=== PATIENT | female | born 1935 | race Caucasian/White ===

== ENCOUNTER 2016-07-22 12:11 | Inpatient (IN) | payer MEDICARE ==
[~2016-07-22] VITALS: Ht 162.6 cm; Wt 64.0 kg
[~2016-07-22 12:11] MED LIST: ALBUTEROL2.5 MG/NEB INH; ARIMIDEX1 MG PO; ASPIRIN CHILDRE81 M1 PO; BYSTOLIC10 MG PO; CALTRATE 600 +1 TAB PO; CENTRUM SILVER1 TAB PO; CHILDREN'S CHEW1 CT1 PO; FISH OIL CONC1000 MG PO; GARLIC500 MG PO; IRON TABLETS325 M1 PO; LEVOTHROID SO0.05 MG PO; LEVOTHYROXIN0.075 M1 PO; LISINOPRIL20 MG PO; MECLIZINE 25MG25 MG PO; METOPROLOL SUC100 M1 PO; METOPROLOL TAR100 MG PO; MULTI VITAMINS1 TAB PO; PANTOPRAZOLE40 M1 PO; PRAVASTATIN 40M40 MG PO; PROTONIX 40MG T40 MG PO; SIMVASTATIN10 MG PO; ZOFRAN ODT4 MG PO; ZYVOX600 MG PO
--- NOTE | 2016-07-22 13:20 | ACUTE CARE PROGRESS NOTE (QUA) ---
Progress Notes Subjective Date 07/22/16 Time 1317 Note See H&P. Admitted with MRSA pneumonia. Assessment/Plan Problem List 1. MRSA pneumonia Status: Acute Patient condition fair Plan: IV Gentamicin This inpt stay is expected to cross 2 MNs from start of care Yes at 1320
[2016-07-22 13:23] LABS: BUN 30 mg/dL (7-18)
[2016-07-22 13:27] VITALS: BP 130/77
[2016-07-22 13:35] LABS: GFR (ESTIMATED) 25 ML/MIN (59-)
[2016-07-22 13:40] LABS: LYMPH # 0.7 K/mm3 (0.7-4.5); LYMPH % 6.6 % (10-50.0)
[2016-07-22 13:53] LABS: HEMOGLOBIN 10.3 g/dL (12.2-16.2)
--- NOTE | 2016-07-22 14:01 | CONSULT NOTE ---
Pharmacokinetic Consult Date of consult: 07/22/16 Time of consult: 0898 Referring provider: DR. LEUNG Reason for consult: GENTAMICIN DOSING Allergies: Coded Allergies: levocetirizine (From Xyzal) (Severe, TONGUE SWELLS, DIZZINESS 03/24/16) linezolid (From Zyvox) (Severe, TONGUE SWELLS 03/24/16) Penicillins (Intermediate, I-HIVES 03/24/16) tetracycline (Intermediate, TONGUE SWELLS 03/24/16) Sulfa (Sulfonamide Antibiotics) (Mild, DIZZINESS 03/24/16) ciprofloxacin (From Cipro) (Mild, DIZZINESS 03/24/16) nitrofurantoin (From Macrobid) (Mild, DIZZINESS 03/24/16) Home Medications: Active Scripts ALBUTEROL (Albuterol 0.083% Neb) 2.5 MG INH DAILY #120 NEB Prov: 03/24/16 Reported Medications Levothyroxine Sodium (Levothyroxine) 0.05 MG NG DAILY #90 METOPROLOL SUCCINATE XL (Metoprolol Succinate) 100 MG PO DAILY PRAVASTATIN SODIUM (Pravastatin Sodium) 40 MG PO QHS Lisinopril 20 MG PO DAILY Aspirin 81 MG PO QHS Height (feet): 5 Height (inches): 4.00 Medical History: CAD? No Angina: No VA: No Hypertension? Yes Hyperlipidemia? Yes CHF? No COPD? No Asthma? No Anemia? No Hernia? No Thyroid Problems? No Hypothyroidism? No CVA? No Seizures? No Diabetes? No UTI? Yes Stones? No GB Disease: Yes Nephritic Syndrome? No Asplenia? No Hepatitis? No Sickle Cell Disease? No Arthritis? No Cataracts? Yes Glaucoma? No MRSA? No TB? No Cancer? Yes Site: BREAST More? Yes Additional hx: MRSA LEFT LUNG Labs: Laboratory Tests 07/22/16 1245: Sodium 133 L, Potassium 4.4, Chloride 101, Carbon Dioxide 21 L, BUN 30 H, Creatinine 1.9 H, Estimated GFR (MDRD) 25 L, Glucose 133 H, Calcium 8.3 L, WBC 10.1, RBC 3.68 L, Hgb 10.3 L, Hct 32.1 L, MCV 87.3, RDW 15.3, Plt Count 384, MPV 8.8, Gran % 86.2 H, Gran # 8.7 H, Lymphocytes % 6.6 L, Monocytes % 6.0, Eosinophils % 0.5, Basophils % 0.6, Lymphocytes # 0.7, Monocytes # 0.6, Eosinophils # 0.1, Basophils # 0.1, PUBS MCHC 32.0, MCH 28.0 Microbiology 07/22 1345 BLOOD: Anaerobic Blood Culture - RECD 07/22 1345 BLOOD: Aerobic Blood Culture - RECD 07/22 1245 BLOOD: Anaerobic Blood Culture - RECD 07/22 1245 BLOOD: Aerobic Blood Culture - RECD Problem List: 1. Pneumonia Plan: BASED ON PATIENT FACTORS, RECOMMEND GENTAMCIN 260 MG (4.7 MG/KG/DBW) IV Q48H. WILL OBTAIN LEVELS AT 4 AND 12 HOURS POST INFUSION. PHARMACY WILL FOLLOW DAILY AND ADJUST APPROPRIATE. at 1401
[2016-07-22 14:37] VITALS: BP 130/77
[2016-07-22 15:02] LABS: NEUTROPHILS 78 % (42-76)
[2016-07-22 16:19] VITALS: BP 136/78
[2016-07-22 19:47] VITALS: BP 159/77
[2016-07-22 20:40] VITALS: BP 159/77
[2016-07-23] VITALS (8 sets, daily range): BP systolic 138–168; BP diastolic 72–88
--- NOTE | 2016-07-23 10:20 | ACUTE CARE PROGRESS NOTE (QUA) ---
Progress Notes Subjective Date 07/23/16 Time 1016 Note She states that she feels better already. She is receiving gentamicin IV. Lab work is reviewed. Her TSH is low. Objective Findings Last VS-Temp:97.6 B/P:138/81 Pulse:78 Resp:16 SaO2:96 OXYGEN Last weight lbs:141 oz:3 K.042 Method:Bed Scales Exam General appearance: alert, no acute distress, she looks quite good. Eyes: anicteric, PERRLA ENT: mucous membranes moist Cardiovascular: regular rate & rhythm Respiratory: good air movement, diminished breath sounds (RIGHT base and with rales.) ABD: soft, no tenderness Extremities: no peripheral edema Skin: dry, intact, normal color Neuro: alert, no deficit, oriented, speech clear Reviewed: medications, vital signs, lab results, radiology report Assessment/Plan Problem List 1. MRSA pneumonia Status: Acute 2. Hypothyroidism Status: Chronic 3. HTN (hypertension) Status: Chronic Plan: continue current care, Dr. Huang will assume care tomorrow. This inpt stay is expected to cross 2 MNs from start of care Yes at 1019
--- NOTE | 2016-07-23 14:36 | CONSULT NOTE ---
Pharmacokinetic Consult Date of consult: 07/23/16 Time of consult: 1434 Referring provider: MADHU Reason for consult: GENT LEVELS Allergies: Coded Allergies: levocetirizine (From Xyzal) (Severe, TONGUE SWELLS, DIZZINESS 03/24/16) linezolid (From Zyvox) (Severe, TONGUE SWELLS 03/24/16) Penicillins (Intermediate, I-HIVES 03/24/16) tetracycline (Intermediate, TONGUE SWELLS 03/24/16) Sulfa (Sulfonamide Antibiotics) (Mild, DIZZINESS 03/24/16) ciprofloxacin (From Cipro) (Mild, DIZZINESS 03/24/16) nitrofurantoin (From Macrobid) (Mild, DIZZINESS 03/24/16) Home Medications: Reported Medications Levothyroxine Sodium (Levothyroxine 0.075MG) 0.075 MG PO DAILY METOPROLOL SUCCINATE XL (Metoprolol Succinate) 100 MG PO DAILY PRAVASTATIN SODIUM (Pravastatin Sodium) 40 MG PO QHS Lisinopril 20 MG PO DAILY Aspirin 81 MG PO QHS Height (feet): 5 Height (inches): 4.00 Medical History: CAD? No Angina: No RI: No Hypertension? Yes Hyperlipidemia? Yes CHF? No DVT? No PE? No COPD? No Asthma? No Anemia? No GERD? Yes Gastric ulcers? No GI Bleed? No Hernia? No Thyroid Problems? Yes Hypothyroidism? Yes CVA? No Seizures? No Diabetes? No Renal Insuffiency? No UTI? Yes Stones? No BPH? No GB Disease: No Nephritic Syndrome? No Asplenia? No Hepatitis? No Sickle Cell Disease? No Arthritis? No Migraines? No Cataracts? Yes Glaucoma? No MRSA? Yes HIV? No TB? No Anxiety? No Depression? No Cancer? Yes Site: BREAST RIGHT More? Yes Additional hx: MRSA LEFT LUNG Labs: Laboratory Tests 07/23/16 0405: Random Gentamicin 4.9 07/22/16 2000: Random Gentamicin 10.0 Plan: BASED ON CURRENT PT FACTORS AND LABS, RECOMMEND CONTINUING GENT 260 MG IV EVERY 48 HOURS. PHARMACY WILL FOLLOW DAILY AND ADJUST APPROPRIATE. at 1434
--- NOTE | 2016-07-23 15:06 | PHARMACY CLINIC NOTE ---
Patient Demographics Patient Demographics Admission date: 07/22/16 Allergies Coded Allergies: levocetirizine (From Xyzal) (Severe, TONGUE SWELLS, DIZZINESS 03/24/16) linezolid (From Zyvox) (Severe, TONGUE SWELLS 03/24/16) Penicillins (Intermediate, I-HIVES 03/24/16) tetracycline (Intermediate, TONGUE SWELLS 03/24/16) Sulfa (Sulfonamide Antibiotics) (Mild, DIZZINESS 03/24/16) ciprofloxacin (From Cipro) (Mild, DIZZINESS 03/24/16) nitrofurantoin (From Macrobid) (Mild, DIZZINESS 03/24/16) HEIGHT- FT: 5 IN: 4.00 K.042 VTE General Information Disclaimer The following section includes nursing documentation that has been pulled in for pharmacy review. Patient's VTE score: 1 Patient's VTE Risk: VERY LOW RISK Clinical trial participant? No VTE prophylaxis Type of prophylaxis/treatment: GARRICK at 1502
[2016-07-24] VITALS (8 sets, daily range): BP systolic 138–160; BP diastolic 76–87
--- NOTE | 2016-07-24 08:48 | ACUTE CARE PROGRESS NOTE (QUA) ---
Progress Notes Subjective Date 07/24/16 Time 0835 Note Thinks she is better; she is having a hard time sleeping; still has a dry cough; walks to the bathroom without problems. voiding QS; bowels have moved; she is eating without problems Objective Findings Vital Signs Date Time Temp Pulse Resp B/P Pulse O2 O2 Flow FiO2 Ox Delivery Rate 07/24 0830 98.7 85 16 159/80 93 ROOM AIR 07/24 0811 99.0 86 16 160/76 94 07/24 0439 99.0 86 16 160/76 94 ROOM AIR 07/24 0433 94 ROOM AIR 07/24 0024 98.6 78 16 157/87 96 ROOM AIR 07/23 2138 98.7 86 16 155/88 91 07/23 1948 98.7 86 16 155/88 91 ROOM AIR 07/23 1611 98.0 88 16 158/87 92 ROOM AIR 07/23 1152 2 07/23 1152 98.2 86 16 168/88 94 OXYGEN 2 07/23 1123 2 07/23 1019 2 Current Medications Metoprolol Succinate 100 MG QHS PO Sodium Chloride 1,000 ML .STK-MED ONE IV (DC) Levothyroxine Sodium 0.05 MG DAILY PO Levothyroxine Sodium 0.075 MG DAILY PO (DC) Lisinopril 20 MG DAILY PO Metoprolol Succinate 100 MG DAILY PO (DC) Prednisone 10 MG DAILY PO Aspirin 81 MG QHS PO Pravastatin Sodium 40 MG QHS PO (CKD) Gentamicin Sulfate 260 MG Q48H IV (CKD) Sodium Chloride 100 ML Sodium Chloride 1,000 ML .[id number] IV 07/23 1500 07/23 2300 07/24 0700 Intake Total 240 1167 Output Total Balance 240 1167 Intake, IV 1047 Intake, Oral 240 120 Last VS-Temp:98.7 B/P:159/80 Pulse:85 Resp:16 SaO2:93 ROOM AIR Last weight lbs:141 oz:3 K.042 Method:Bed Scales Exam General appearance: alert, active, no acute distress Cardiovascular: regular rate & rhythm Respiratory: few bibasilar crackles Assessment/Plan Problem List 1. MRSA pneumonia Status: Acute 2. Hypothyroidism Status: Chronic 3. HTN (hypertension) Status: Chronic Patient condition Improving Plan: saline lock ; continue with IV ABX, add xopenex [place] This inpt stay is expected to cross 2 MNs from start of care Yes (Gemma Lepe APRN) Assessment/Plan Problem List 1. MRSA pneumonia Status: Acute 2. Hypothyroidism Status: Chronic 3. HTN (hypertension) Status: Chronic 4. Anemia 5. Renal insufficiency Comments: Patient seen and agree with above note, plan on rechecking CXR today. Patient generally uses nebulized Gentamicin, will discuss availability with pharmacy. (Ben Huang MD) at 0848 at 0850 at 0908
[2016-07-24 09:15] LABS: HEMOGLOBIN 9.4 g/dL (12.2-16.2); LYMPH # 1.3 K/mm3 (0.7-4.5); LYMPH % 13.7 % (10-50.0)
--- NOTE | 2016-07-24 12:50 | RADIOLOGY REPORT PS360 ---
CHEST(2 VIEWS-NOT PORTABLE) ORDERING PHYSICIAN : Ben Huang MD PATIENT AGE: 81 years GENDER: Female INDICATION: Pneumonia vs bronchitis Progression Pneumonia TECHNIQUE: 8 PA and lateral chest COMPARISON: 07/21/[address] chest from 1 FINDINGS Progression of dense pneumonic infiltrate & consolidation, involving LLL since 07/21/2016 CXR. There are some small smooth the posterior left lower lobe. Only the posterior aspect of the diaphragm of is obscured. Likely Progressive volume loss and atelectasis here as well.. . Diffuse chronic interstitial changes and fibrotic changes bilaterally otherwise noted. Initially question early infiltrate right midlung but similar appearance seen on March and October 2015 CXR Cardiomegaly. Fani and superior mediastinal structures stable. Dilated aortic knob. Dextroscoliosis T-spine chest wall and T-spine with no acute findings IMPRESSION: Progression left lower lobe pneumonia Increased density of the pneumonic infiltrate & consolidation LLL lobe since 07/21/2016 Background advanced chronic fibrotic changes bilaterally
[2016-07-25] VITALS (8 sets, daily range): BP systolic 139–168; BP diastolic 75–95
[2016-07-25 06:26] LABS: HEMOGLOBIN 9.9 g/dL (12.2-16.2); LYMPH # 2.4 K/mm3 (0.7-4.5); LYMPH % 25.4 % (10-50.0)
--- NOTE | 2016-07-25 08:13 | ACUTE CARE PROGRESS NOTE (QUA) ---
Progress Notes Subjective Date 07/25/16 Time 0809 Note States that she feels much better this AM; Productive cough at times; Gentamycin inh has helped; She slept well and is eating better; She was able to take a shower and wash her hair yesterday; She did well with this activity Objective Findings Laboratory Tests 07/25/16 0600: Sodium 138, Potassium 4.1, Chloride 105, Carbon Dioxide 22, BUN 25 H, Creatinine 1.5 H, Estimated Creat Clear 30 L, Estimated GFR (MDRD) 33 L, Glucose 88, Calcium 8.3 L, WBC 9.4, RBC 3.60 L, Hgb 9.9 L, Hct 30.6 L, MCV 85.1, RDW 15.1, Plt Count 433 H, MPV 8.7, Gran % 66.2, Gran # 6.2, Lymphocytes % 25.4, Monocytes % 6.4, Eosinophils % 1.1, Basophils % 0.8, Lymphocytes # 2.4, Monocytes # 0.6, Eosinophils # 0.1, Basophils # 0.1, PUBS MCHC 32.4, MCH 27.6 07/24/16 0900: Sodium 138, Potassium 4.1, Chloride 106, Carbon Dioxide 20 L, BUN 27 H, Creatinine 1.6 H, Estimated Creat Clear 28 L, Estimated GFR (MDRD) 31 L, Glucose 135 H, Calcium 7.9 L, WBC 9.5, RBC 3.29 L, Hgb 9.4 L, Hct 27.6 L, MCV 83.7, RDW 15.1, Plt Count 381, MPV 8.8, Gran % 76.0, Gran # 7.2, Lymphocytes % 13.7, Monocytes % 7.5, Eosinophils % 2.2, Basophils % 0.5, Lymphocytes # 1.3, Monocytes # 0.7, Eosinophils # 0.2, Basophils # 0.1, PUBS MCHC 34.2, MCH 28.6 Vital Signs Date Time Temp Pulse Resp B/P Pulse O2 O2 Flow FiO2 Ox Delivery Rate 07/25 739 2 07/25 739 98.3 81 18 139/80 93 OXYGEN 2 07/25 0708 2 07/25 0600 88 ROOM AIR 07/25 0416 98.7 76 18 168/84 93 ROOM AIR 07/25 0013 98.7 85 18 145/75 92 ROOM AIR 07/24 2130 99.7 89 20 138/83 93 2 07/24 2003 99.7 89 20 138/83 93 ROOM AIR 07/24 1950 2 07/24 1950 92 ROOM AIR 07/24 1756 2 07/24 1756 88 ROOM AIR 07/24 1603 98.6 83 16 146/79 92 ROOM AIR 07/24 1153 98.2 84 16 153/86 92 ROOM AIR 07/24 1059 2 07/24 1059 2 07/24 1059 90 ROOM AIR 07/24 0830 98.7 85 16 159/80 93 ROOM AIR Current Medications Gentamicin Sulfate 0 .STK-MED ONE .ROUTE (DC) Gentamicin Sulfate 0 .STK-MED ONE .ROUTE (DC) Gentamicin Sulfate 80 MG TIDRT IV (CKD) Levalbuterol HCl 0.63 MG TIDRT INH Gentamicin Sulfate 80 MG Q8H IV (DC) Sodium Chloride 10 ML PRN PRN IV Metoprolol Succinate 100 MG QHS PO Levothyroxine Sodium 0.05 MG DAILY PO Lisinopril 20 MG DAILY PO Prednisone 10 MG DAILY PO Aspirin 81 MG QHS PO Pravastatin Sodium 40 MG QHS PO (CKD) Gentamicin Sulfate 260 MG Q48H IV (DCr) Sodium Chloride 100 ML Sodium Chloride 1,000 ML .[id number] IV (DC) 07/24 1500 07/24 2300 07/25 0700 Intake Total 360 Output Total Balance 360 Intake, Oral 360 Patient 141 lb Weight Last VS-Temp:98.3 B/P:139/80 Pulse:81 Resp:18 SaO2:93 OXYGEN Last weight lbs:141 oz:3 K.042 Method:Bed Scales Sputum GRAM STAIN Final 07/22/16-1456 GRAM STAIN: BUDDING YEAST 2+ GRAM POSITIVE BACILLI 2+ GRAM POS COCCI 2+ GRAM POS COCCI IN CHAINS 1+ <10 EPITHELIAL CELLS /LPF 10-25 WBC /LPF > SPUTUM CULTURE Final 07/25/16-0635 Organism 1 STAPHYLOCOCCUS AUREUS 1. STAPHYLOCOCCUS AUREUS RX AB M.I.C ROUTE COST I ------ -- --------- ----- ------ TRIMETH/SULFAMETH (BACTRIM) S <=10 CLINDAMYCIN R 4 ERYTHROMYCIN R >=8 GENTAMICIN S <=0.5 LEVOFLOXACIN R 4 OXACILLIN R >=4 BENZYLPENICILLIN R >=0.5 RIFAMPIN S <=0.5 TETRACYCLINE S <=1 VANCOMYCIN S 1 NOTIFIED DEJUAN THIS IS METHICILLIN RESISTANT STAPH AUREUS CALL MRSA RESULTS TO CAREGIVER Exam General appearance: alert, active, no acute distress, well-developed, well- nourished Cardiovascular: regular rate & rhythm Respiratory: bibasilar crackles ABD: non-distended, soft, no tenderness Extremities: no peripheral edema, no calf tenderness Neuro: alert, oriented Assessment/Plan Problem List 1. MRSA pneumonia Status: Acute 2. Hypothyroidism Status: Chronic 3. HTN (hypertension) Status: Chronic 4. Anemia 5. Renal insufficiency 6. Yeast infection Patient condition Improving Plan: continue with inhaled Gentamycin and add diflucan for + yeast in sputum This inpt stay is expected to cross 2 MNs from start of care Yes (Gemma Lepe APRN) Assessment/Plan Problem List 1. MRSA pneumonia Status: Acute 2. Hypothyroidism Status: Chronic 3. HTN (hypertension) Status: Chronic 4. Anemia 5. Renal insufficiency 6. Yeast infection Comments: Patient seen and agree with above note. (Ben Huang MD) Antibiotic Stewardship (2) Current Culture Results Microbiology 07/22 1345 BLOOD: Anaerobic Blood Culture - RECD 07/22 1345 BLOOD: Aerobic Blood Culture - RECD 07/22 1245 SPUTUM: Sputum Culture - COMP STAPHYLOCOCCUS AUREUS 07/22 1245 SPUTUM: Gram Stain - COMP Infxn that will respond? Yes Right drug,dose,and route? Yes More targeted antbx? No How long atbx needed? 10 (Gemma Lepe APRN) at 0826 at 0828
[2016-07-26 03:32] VITALS: BP 160/89
--- NOTE | 2016-07-26 08:12 | ACUTE CARE PROGRESS NOTE (QUA) ---
Progress Notes Subjective Date 07/26/16 Time 0808 Note She states that she feels so much better; productive cough of green sputum; breathing is better; denies CP; eating better; ambulated in the hallway yesterday; voiding QS Objective Findings Vital Signs Date Time Temp Pulse Resp B/P Pulse O2 O2 Flow FiO2 Ox Delivery Rate 07/26 0559 90 ROOM AIR 07/26 0344 91 ROOM AIR 07/26 0332 97.9 76 18 160/89 93 ROOM AIR 07/25 2345 98.1 90 18 160/95 93 ROOM AIR 07/25 2119 98.3 95 18 154/92 93 07/25 2025 2 07/25 1922 98.3 95 18 154/92 93 ROOM AIR 07/25 1611 98.3 94 18 141/77 92 ROOM AIR 07/25 1143 98.2 81 18 159/90 90 OXYGEN 2 07/25 0817 98.3 81 18 139/80 93 Current Medications Gentamicin Sulfate 80 MG TIDRT IH Fluconazole 200 MG DAILY PO (CKD) Gentamicin Sulfate 80 MG TIDRT IV (DC) Levalbuterol HCl 0.63 MG TIDRT INH Sodium Chloride 10 ML PRN PRN IV Metoprolol Succinate 100 MG QHS PO Levothyroxine Sodium 0.05 MG DAILY PO Lisinopril 20 MG DAILY PO Prednisone 10 MG DAILY PO Aspirin 81 MG QHS PO Pravastatin Sodium 40 MG QHS PO (CKD) 07/25 1500 07/25 2300 07/26 0700 Intake Total 540 250 Output Total Balance 540 250 Intake, IV 10 Intake, Oral 540 240 Last VS-Temp:97.9 B/P:160/89 Pulse:76 Resp:18 SaO2:90 ROOM AIR Last weight lbs:141 oz:3 K.042 Method:Bed Scales Exam General appearance: alert, active, no acute distress, sitting on bedside eating breakfast Cardiovascular: regular rate & rhythm Respiratory: better air movement; loose crackles > on the left Extremities: no peripheral edema Neuro: alert, oriented Assessment/Plan Problem List 1. MRSA pneumonia Status: Acute 2. Hypothyroidism Status: Chronic 3. HTN (hypertension) Status: Chronic 4. Anemia 5. Renal insufficiency 6. Yeast infection Patient condition Improved Plan: continue current care This inpt stay is expected to cross 2 MNs from start of care Yes (Gemma Lepe APRN) Assessment/Plan Problem List 1. MRSA pneumonia Status: Acute 2. Hypothyroidism Status: Chronic 3. HTN (hypertension) Status: Chronic 4. Anemia 5. Renal insufficiency 6. Yeast infection Comments: Patient seen and agree with above note. (Ben Huang MD) Antibiotic Stewardship (2) Infxn that will respond? Yes Right drug,dose,and route? Yes More targeted antbx? No (Gemma Lepe APRN) at 0812
[2016-07-26 08:34] VITALS: BP 131/75
[2016-07-26] MEDS ORDERED: GENTAMICIN80 MG/2 ML IH (08:49)
[2016-07-26] MEDS ORDERED: DIFLUCAN 200MG200 MG PO (08:51)
[2016-07-26] MEDS ORDERED: PREDNISONE 10MG10 MG PO (08:53)
[2016-07-26 11:34] VITALS: BP 131/75
--- NOTE | 2016-08-01 15:35 | DISCHARGE SUMMARY STANDARD ---
Discharge Summary ([facility]) Date of admission: 07/22/16 Date of discharge: 07/26/16 Problem List: 1. MRSA pneumonia 2. Hypothyroidism 3. HTN (hypertension) 4. Anemia 5. Renal insufficiency 6. Yeast infection History of present illness: Ms Lomas is an 81 year old female with a history of MRSA pneumonia who presented to the office of [facility] for a 1 day follow-up with a cough. She had previously been seen in the office with the same and had seen no improvement. She reported SOB with worsening the AM of the office visit. After assessment she was admitted to [facility] for further treatment of LLL pneumonia with MRSA. Exam on admission: Objective Findings Last VS-Temp:97.6 B/P:138/81 Pulse:78 Resp:16 SaO2:96 OXYGEN Last weight lbs:141 oz:3 K.042 Method:Bed Scales Exam General appearance: alert, no acute distress, she looks quite good. Eyes: anicteric, PERRLA ENT: mucous membranes moist Cardiovascular: regular rate & rhythm Respiratory: good air movement, diminished breath sounds (RIGHT base and with rales.) ABD: soft, no tenderness Extremities: no peripheral edema Skin: dry, intact, normal color Neuro: alert, no deficit, oriented, speech clear Hospital Course: patient was started on IV Gentamycin, steriods, and xopenex. She felt better daily. Gentamycin ws changed from IV to inhaled. She began to cough up sputum. Sputum culture did reveal MRSA. She began to eat better. She was able to take a shower and was ambulating in the room and hallway. On 07/26/16 she continued with a productive cough and was breathing better. On this date she was discharged to home. Laboratory data this visit: 07/25/16 0600: Sodium 138, Potassium 4.1, Chloride 105, Carbon Dioxide 22, BUN 25 H, Creatinine 1.5 H, Estimated Creat Clear 30 L, Estimated GFR (MDRD) 33 L, Glucose 88, Calcium 8.3 L, WBC 9.4, RBC 3.60 L, Hgb 9.9 L, Hct 30.6 L, MCV 85.1, RDW 15.1, Plt Count 433 H, MPV 8.7, Gran % 66.2, Gran # 6.2, Lymphocytes % 25.4, Monocytes % 6.4, Eosinophils % 1.1, Basophils % 0.8, Lymphocytes # 2.4, Monocytes # 0.6, Eosinophils # 0.1, Basophils # 0.1, PUBS MCHC 32.4, MCH 27.6 07/24/16 0900: Sodium 138, Potassium 4.1, Chloride 106, Carbon Dioxide 20 L, BUN 27 H, Creatinine 1.6 H, Estimated Creat Clear 28 L, Estimated GFR (MDRD) 31 L, Glucose 135 H, Calcium 7.9 L, WBC 9.5, RBC 3.29 L, Hgb 9.4 L, Hct 27.6 L, MCV 83.7, RDW 15.1, Plt Count 381, MPV 8.8, Gran % 76.0, Gran # 7.2, Lymphocytes % 13.7, Monocytes % 7.5, Eosinophils % 2.2, Basophils % 0.5, Lymphocytes > SPUTUM CULTURE Final 07/25/16-0635 Organism 1 STAPHYLOCOCCUS AUREUS 1. STAPHYLOCOCCUS AUREUS RX AB M.I.C ROUTE COST I ------ -- --------- ----- ------ TRIMETH/SULFAMETH (BACTRIM) S <=10 CLINDAMYCIN R 4 ERYTHROMYCIN R >=8 GENTAMICIN S <=0.5 LEVOFLOXACIN R 4 OXACILLIN R >=4 BENZYLPENICILLIN R >=0.5 RIFAMPIN S <=0.5 TETRACYCLINE S <=1 VANCOMYCIN # 1.3, Monocytes # 0.7, Eosinophils # 0.2, Basophils # 0.1 , PUBS MCHC 34.2, MCH 28.6 Imaging: CXR 07/21/16 IMPRESSION: 1. Left lower lobe pneumonia superimposed upon chronic fibrotic changes CXR 07/24/16 IMPRESSION: Progression left lower lobe pneumonia Increased density of the pneumonic infiltrate & consolidation LLL lobe since 07/21/2016 Background advanced chronic fibrotic changes bilaterally Discharge medications: Continue taking these medications: Lisinopril (Lisinopril) 20 MG TABLET 20 MILLIGRAM ORAL DAILY Aspirin (Aspirin) 81 MG TAB.CHEW 81 MILLIGRAM ORAL AT BEDTIME NIGHTLY PRAVASTATIN SODIUM (Pravastatin Sodium) 40 MG TABLET 40 MILLIGRAM ORAL AT BEDTIME NIGHTLY METOPROLOL SUCCINATE XL (Metoprolol Succinate) 100 MG TAB.ER.24H 100 MILLIGRAM ORAL DAILY Levothyroxine Sodium (Levothyroxine 0.075MG) 75 MCG TABLET 0.075 MILLIGRAM ORAL DAILY Start taking the following new medications: Gentamicin Sulfate (Gentamicin 80MG/2ML Inj) 40 MG/ML VIAL 80 MILLIGRAM INHALATION THREE TIMES A DAY 01/03/2000 Days = 7 No Refills Fluconazole (Diflucan 200MG) 200 MG TABLET 200 MILLIGRAM ORAL DAILY Days = 7 No Refills Prednisone (Prednisone 10MG) 10 MG TABLET 10 MILLIGRAM ORAL DAILY Qty = 10 Refills = 1 Instructions: 10 MG pO DAILY X 3 DAYS; THEN 5 MG PO DAILY X 7 DAYS Disposition: Discharged to home in stable and satisfactory condition. Meds as per reconciliation sheet; Gentamycin prepared by pharmacy for inhalation via neb bid. Diet and activity were to be continued during hospitalization. FU with Dr. Huang in 5 days at 2255
[2016-08-12] MEDS ORDERED: PROTONIX 40MG T40 MG PO (16:39)
[2016-08-16] MEDS ORDERED: FLAGYL500 M1 PO (09:34)
== END 2016-07-26 11:30 | disposition home or self-care (01) | DRG 179 ==
LOC: 2ND 12:11
PROVIDERS: Family Medicine
DX: J15.212 Pneumonia due to Methicillin resistant Staphylococcus aureus (principal); D64.9 Anemia, unspecified; E03.9 Hypothyroidism, unspecified; I10 Essential (primary) hypertension; B37.9 Candidiasis, unspecified; N28.9 Disorder of kidney and ureter, unspecified

== ENCOUNTER → 2016-07-31 | Outpatient (CLI) | payer MEDICARE ==
[~2016-07-31] MED LIST changes: +ALLEGRA ALLERG180 MG PO; +CENTRUM SILVER1 EACH PO; +CITRACAL + BON1 EACH PO; +DIFLUCAN 200MG200 MG PO; +FERROUS SULFAT325 M1 PO; +FLAGYL500 M1 PO; +GENTAMICIN80 MG/2 ML IH; +PREDNISONE 10MG10 MG PO; +PROBIOTIC FORM1 EACH PO
--- NOTE | 2016-07-31 11:47 | RADIOLOGY REPORT PS360 ---
CHEST(2 VIEWS-NOT PORTABLE) HISTORY: PNEUMONIA COMPARISON: 07/24/2016 FINDINGS: The cardiomediastinal silhouette and pulmonary vascularity are within normal limits. Left lower lobe pneumonia has shown some improvement compared to the previous exam. There does remain some increased density in the left lung base however. Chronic interstitial changes are noted with evidence of old granulomatous disease minimal atelectatic or fibrotic changes are present in the right midlung. Moderate thoracic scoliosis convex right. Small hiatal hernia IMPRESSION: Persistent but improving left lower lobe pneumonia with chronic changes.
== END ==
LOC: RAD 11:01
DX: J15.212 Pneumonia due to Methicillin resistant Staphylococcus aureus (principal)

== ENCOUNTER 2016-09-25 14:46 | Inpatient (IN) | payer MEDICARE ==
[~2016-09-25] VITALS: Ht 160 cm; Wt 64.1 kg
[~2016-09-25 14:46] MED LIST changes: -ALLEGRA ALLERG180 MG PO; -CENTRUM SILVER1 EACH PO; -CITRACAL + BON1 EACH PO; -FERROUS SULFAT325 M1 PO; -PROBIOTIC FORM1 EACH PO
[2016-09-25 15:09] VITALS: BP 102/70
[2016-09-25 15:30] LABS: LYMPH # 1.3 K/mm3 (0.7-4.5); LYMPH % 16.9 % (10-50.0)
--- NOTE | 2016-09-25 16:27 | RADIOLOGY REPORT PS360 ---
CT ABD PELVIS W/O CONTRAST CLINICAL INDICATION: Abdominal pain with diarrhea, history of intussusception ABDOMINAL PAIN ORDERING PHYSICIAN: Miles Edgar MD PATIENT AGE: 81 years COMPARISON: 08/13/2016 TECHNIQUE: Axial images obtained with sagittal and coronal reformats. PROCEDURE: Oral Contrast: None IV Contrast: None . FINDINGS: There is moderate bronchial thickening in the lung bases which has progressed since the previous exam. There is some mild bronchiectasis in the lingula and left lower lobe with peripheral consolidation/volume loss in the lung bases posteriorly. Small left pleural effusion. The liver has an unremarkable appearance. There has been a prior cholecystectomy. A 16 mm probably benign isodensity involves the spleen similar to an older exam of 09/22/2011. The pancreas and adrenal glands are unremarkable. No renal stone or obstructing ureteral stone evident. Possible cyst lateral aspect of the left kidney. Ileocolic intussusception is once again noted. This is somewhat more prominent than when compared to the previous exam. Previously however there was moderate bowel wall thickening of the terminal ileum which is not readily apparent on today's exam. There does appear to be thickening of the tip of the cecum which is within the central aspect of the intussusceptum. There is colonic diverticulosis but no evidence of diverticulitis. No intestinal obstruction or free air. There is minimal subcortical cystic change of the SI joints nonspecific. IMPRESSION: 1. Ileocolic intussusception as described above. No evidence of bowel obstruction. 2. No change splenic lesion. 3. There is thickening of the tip of the cecum which is involved within the intussusception. This could be inflammatory or neoplastic. Follow-up suggested.
--- NOTE | 2016-09-25 17:35 | Emergency Room Report ---
History of Present Illness Time Seen by 1531 Presenting Problem in Triage Pt arrived:Wheelchair Presenting Problem:ABD PAIN X3 DAYS WITH DIARRHEA PT WAS SEEN BY DR CUEVA ON SUNDAY DX WITH CHOLOLITIS , WAS PUT ON FLAGYL WITH NO IMPROVMENTS Onset of symptoms date/time:09/2210/06/699 or onset unknown for: Treatment Prior to Arrival: PT PLACED ON FLAGYL ON SUNDAY [employer] Provided by: PHYSICIAN Sepsis Risk Assessment: Temp: 97.9 B/P: 125/72 MAP: 80 Pulse: 82 Resp: 20 Recent fever? N Clinical Suspician of Infection? N Mental Status: 1 - Regular (Normal Baseline) Sepsis Risk:Low Sepsis Risk Have you (or family members/close friends) recently traveled outside the [place]? N If Yes, where/when: Have you had exposure to infectious disease within the past month? N TB? Other? Specify: She complains of LEFT lower quadrant crampy pain moderate to severe at times she states it doesn't radiate anywhere denies any fevers or chills has had diarrhea denies any vomiting no complaint of chest pain or headache, sore family doctor on Sunday states she was diagnosed with colitis and was put on Flagyl Comment CT ABD PELVIS W/O CONTRAST CLINICAL INDICATION: Abdominal pain with diarrhea, history of intussusception ABDOMINAL PAIN ORDERING PHYSICIAN: Miles Edgar MD PATIENT AGE: 81 years COMPARISON: 08/13/2016 TECHNIQUE: Axial images obtained with sagittal and coronal reformats. PROCEDURE: Oral Contrast: None IV Contrast: None . FINDINGS: There is moderate bronchial thickening in the lung bases which has progressed since the previous exam. There is some mild bronchiectasis in the lingula and left lower lobe with peripheral consolidation/volume loss in the lung bases posteriorly. Small left pleural effusion. The liver has an unremarkable appearance. There has been a prior cholecystectomy. A 16 mm probably benign isodensity involves the spleen similar to an older exam of 09/22/2011. The pancreas and adrenal glands are unremarkable. No renal stone or obstructing ureteral stone evident. Possible cyst lateral aspect of the left kidney. Ileocolic intussusception is once again noted. This is somewhat more prominent than when compared to the previous exam. Previously however there was moderate bowel wall thickening of the terminal ileum which is not readily apparent on today's exam. There does appear to be thickening of the tip of the cecum which is within the central aspect of the intussusceptum. There is colonic diverticulosis but no evidence of diverticulitis. No intestinal obstruction or free air. There is minimal subcortical cystic change of the SI joints nonspecific. IMPRESSION: 1. Ileocolic intussusception as described above. No evidence of bowel obstruction. 2. No change splenic lesion. 3. There is thickening of the tip of the cecum which is involved within the intussusception. This could be inflammatory or neoplastic. Follow-up suggested. 09/25/16 1627 BONAL / PS AT 1611 AT 1622 55pm I have discussed with Dr. Birch and the CAT scan he will follow as a consult I discussed with Dr. Ibrahim the diarrhea LEFT lower quadrant pain that elevated creatinine E intussusception and he accepts patient in admission ALLERGIES Coded Allergies: levocetirizine (From Xyzal) (Severe, TONGUE SWELLS, DIZZINESS 03/24/16) linezolid (From Zyvox) (Severe, TONGUE SWELLS 03/24/16) Penicillins (Intermediate, I-HIVES 03/24/16) tetracycline (Intermediate, TONGUE SWELLS 03/24/16) Sulfa (Sulfonamide Antibiotics) (Mild, DIZZINESS 03/24/16) ciprofloxacin (From Cipro) (Mild, DIZZINESS 03/24/16) nitrofurantoin (From Macrobid) (Mild, DIZZINESS 03/24/16) Home Medications Active Scripts Metronidazole (Flagyl) 500 MG PO Q8 #20 TAB Prov: 08/16/16 Reported Medications Levothyroxine Sodium (Levothyroxine 0.075MG) 0.075 MG PO DAILY METOPROLOL SUCCINATE XL (Metoprolol Succinate) 100 MG PO DAILY PRAVASTATIN SODIUM (Pravastatin Sodium) 40 MG PO QHS Pantoprazole Sodium (Protonix 40MG TAB) 40 MG PO QHS Lisinopril 20 MG PO DAILY Aspirin 81 MG PO QHS History Medical History General CAD? No Angina: No IN: No Hypertension? Yes Hyperlipidemia? Yes CHF? No DVT? No PE? No COPD? No Asthma? No Anemia? No GERD? Yes Gastric ulcers? No GI Bleed? No Hernia? No Thyroid Problems? Yes Hypothyroidism? Yes CVA? No Seizures? No Diabetes? No Renal Insuffiency? No End Stage Renal Disease? No UTI? Yes Stones? No BPH? No GB Disease: No Nephritic Syndrome? No Asplenia? No Hepatitis? No Sickle Cell Disease? No Arthritis? No Migraines? No Cataracts? Yes Glaucoma? No MRSA? Yes HIV? No TB? No Anxiety? No Depression? No Cancer? Yes Site: BREAST RIGHT More? Yes Additional hx: MRSA LEFT LUNG Immunization Hx DT/Tetanus 5-10 Years Ago Flu 2016-17FSN Pneumonia Received In Past Surgical Hx Previous Surgery?Y Breast bx R LUMPECTOMY [id number] 2007 BILAT BREASTS- FIBROCYSTIC TUMORS REMOVED X10 LT CATARACT CHOLECYSTECTOMY RIGHT CATARACT Family History Family Hx Diabetes No CAD No Hypertension Yes Hyperlipidemia Yes Cancer No TB No Social History Smoking Hx Smoker: Never Smoker Tobacco: No Packs/day N/A Alcohol Alcohol: No Review of Systems All Other Systems Reviewed and Negative Physical Exam Vital Signs Vital Signs Date Time Temp Pulse Resp B/P Pulse O2 O2 Flow FiO2 Ox Delivery Rate 09/25 1641 97.9 82 20 125/72 92 09/25 1509 97.9 83 20 102/70 94 09/25 1455 97.9 83 20 102/70 94 General Appearance: Nontoxic Head: Normocephalic, without obvious abnormality, atraumatic. Eyes: conjunctiva/corneas clear ENT: Mucous membranes moist. Neck: No jugular venous distention. Cardiac: regular rate and rhythm Lungs: Clear to auscultation bilaterally Abdomen: LEFT lower quadrant tenderness, Nondistended, positive bowel sounds, no rebound : No CVA tenderness Extremities: no edema Musculoskeletal: No chest wall tenderness Skin: No rashes or lesions to exposed skin. Neurologic: Alert. No gross focal deficits Psychiatric: Normal affect (Tala MELARA, Miles) General Appearance normal appearance Respiratory Status No: respiratory distress. Cardiovascular no JVD Neurologic alert Medical Decision Making LABS/Meds/Orders Pt receiving controlled substance in ED? No Comment 542pm call out to surgery Results/Orders Laboratory Tests 09/25/16 1527: Sodium Cancelled, Potassium Cancelled, Chloride Cancelled, Carbon Dioxide Cancelled, BUN Cancelled, Creatinine Cancelled, Estimated Creat Clear Cancelled, Estimated GFR (MDRD) Cancelled, Glucose Cancelled, Calcium Cancelled, Total Bilirubin Cancelled, AST Cancelled, ALT Cancelled, Alkaline Phosphatase Cancelled, Total Protein Cancelled, Albumin Cancelled, Globulin Cancelled, Albumin/Globulin Ratio Cancelled, Urine Color Cancelled, Urine Appearance Cancelled, Urine pH Cancelled, Ur Specific [place] Cancelled 09/25/16 1522: Sodium 134 L, Potassium 4.1, Chloride 100, Carbon Dioxide 20 L, BUN 43 H, Creatinine 3.4 H, Estimated Creat Clear 12 L, Estimated GFR (MDRD) 13 *L, Glucose 101, Calcium 8.5, Total Bilirubin 0.3, AST 37, ALT 21, Alkaline Phosphatase 43 L, Total Protein 8.3 H, Albumin 2.9 L, Globulin 5.4 H, Albumin/Globulin Ratio 0.5 L, Amylase 42, Lipase 194, WBC 8.0, RBC 3.84 L, Hgb 11.0 L, Hct 34.4 L, MCV 89.4, RDW 15.9, Plt Count 269, MPV 6.1 L, Gran % 79.1 , Gran # 6.3, Lymphocytes % 16.9, Monocytes % 3.4, Eosinophils % 0.2, Basophils % 0.3, Lymphocytes # 1.3, Monocytes # 0.3, Eosinophils # 0.0, Basophils # 0.0, PUBS MCHC 31.3 L, MCH 28.0 09/25/16 0330: WBC Cancelled, RBC Cancelled, Hgb Cancelled, Hct Cancelled, MCV Cancelled, RDW Cancelled, Plt Count Cancelled, Gran % Cancelled, Gran # Cancelled, Lymphocytes % Cancelled, Eosinophils % Cancelled, Basophils % Cancelled, Lymphocytes # Cancelled, Eosinophils # Cancelled, Basophils # Cancelled, PUBS MCHC Cancelled, MCH Cancelled Current Medication Orders Sig/Quentin Start time Last Medication Dose Route Stop Time Status Admin Sodium Chloride 1,000 ML .STK-MED ONE 09/25 1550 DC IV Sodium Chloride 10 ML PRN PRN 09/25 1530 AC IV 09/26 1523 Sodium Chloride 10 ML PRN PRN 09/25 1530 AC IV 09/26 1523 Sodium Chloride 1,000 ML .Q1H1M 09/25 1530 DC 09/25 IV 09/25 1630 1551 Sodium Chloride 10 ML PRN PRN 09/25 1530 AC IV 09/26 1523 Orders Procedure Date/time Status DIET-NOTHING BY MOUTH 09/25 D Active Decision to admit 09/25 1752 Active CULTURE, STOOL 09/25 1748 Active OVA AND PARASITE EXAM 09/25 1748 Active STOOL FOR WBC'S 09/25 1748 Active STOOL OCCULT BLOOD 09/25 1748 Active CLOSTRIDIUM DIFFICLE TOXIN A,B 09/[address] ABD/PELVIS REQ 09/25 1527 Complete IV SALINE LOCK 09/25 1527 Active IV SALINE LOCK 09/25 1523 Active URINALYSIS/COMPLETE 09/25 1523 Active LIPASE 09/25 1523 Complete COMPLETE METABOLIC PANEL 09/25 1523 Complete CBC WITH AUTO DIFF 09/25 1523 Complete AMYLASE 09/25 1523 Complete Departure Departure Time of Disposition 1755 Disposition Still a Patient Clinical Impression Primary Impression: JALYN (acute kidney injury) Secondary Impressions: Abdominal pain Qualifiers: Abdominal location: left lower quadrant Qualified Code: R10.32 - Left lower quadrant pain Colonic intussusception Diarrhea Qualifiers: Diarrhea type: unspecified type Qualified Code: R19.7 - Diarrhea, unspecified Condition STABLE ED Critical Care Critical Care No at 1756
[2016-09-25 19:03] VITALS: BP 149/83
--- NOTE | 2016-09-25 19:15 | CONSULT NOTE ---
Standard Demographics Patient Demo Date of Consultation: 09/25/16 Referring Provider: Ben Huang MD Reason for Consultation: possible intussusception PRIMARY DIAGNOSIS: ACUTE KIDNEY INJURY, INTUSSESCEPTION Allergies: Coded Allergies: levocetirizine (From Xyzal) (Severe, TONGUE SWELLS, DIZZINESS 03/24/16) linezolid (From Zyvox) (Severe, TONGUE SWELLS 03/24/16) Penicillins (Intermediate, I-HIVES 03/24/16) tetracycline (Intermediate, TONGUE SWELLS 03/24/16) Sulfa (Sulfonamide Antibiotics) (Mild, DIZZINESS 03/24/16) ciprofloxacin (From Cipro) (Mild, DIZZINESS 03/24/16) nitrofurantoin (From Macrobid) (Mild, DIZZINESS 03/24/16) History of Present Illness Chief Complaint: Abdominal pain and diarrhea History of Present Illness: Patient is an 81-year-old white female. 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 She had been hospitalized in late July with change in bowel habits. In that time she had undergone noncontrast CT scan which revealed findings suggestive of ileocolic intussusception. Her symptoms actually completely resolved during that hospitalization and she underwent follow-up CT scan with oral contrast later during that admission which revealed findings more suggestive of right-sided colitis. She states she had been doing well at home as an outpatient without any such symptoms until last Sunday. She states that she had eaten some spicy food and then developed significant diarrhea with watery stools for several days. She saw her primary physician and was started on metronidazole on 09/22/16. She had ongoing symptoms of LEFT lower quadrant pain throughout the last several days with ongoing diarrhea and therefore presented to the emergency department this afternoon. CT scan was performed without contrast which was read as ileocolic intussusception. She was admitted for inpatient management. Patient has not had any nausea or vomiting or signs of bowel obstruction. Of note, patient underwent previous colonoscopy at least 10 [place] ago out of state. Past Medical History Reports: hypertension. Surgical History Previous Surgery?Y Breast bx R LUMPECTOMY [id number] 2008 BILAT BREASTS- FIBROCYSTIC TUMORS REMOVED X10 LT CATARACT CHOLECYSTECTOMY RIGHT CATARACT Allergies Coded Allergies: levocetirizine (From Xyzal) (Severe, TONGUE SWELLS, DIZZINESS 03/24/16) linezolid (From Zyvox) (Severe, TONGUE SWELLS 03/24/16) Penicillins (Intermediate, I-HIVES 03/24/16) tetracycline (Intermediate, TONGUE SWELLS 03/24/16) Sulfa (Sulfonamide Antibiotics) (Mild, DIZZINESS 03/24/16) ciprofloxacin (From Cipro) (Mild, DIZZINESS 03/24/16) nitrofurantoin (From Macrobid) (Mild, DIZZINESS 03/24/16) Medications: Active Scripts Metronidazole (Flagyl) 500 MG PO Q8 #20 TAB Prov: 08/16/16 Reported Medications Levothyroxine Sodium (Levothyroxine 0.075MG) 0.075 MG PO DAILY METOPROLOL SUCCINATE XL (Metoprolol Succinate) 100 MG PO DAILY PRAVASTATIN SODIUM (Pravastatin Sodium) 40 MG PO QHS Pantoprazole Sodium (Protonix 40MG TAB) 40 MG PO QHS Lisinopril 20 MG PO DAILY Aspirin 81 MG PO QHS Additional medical history: MRSA pneumonia followed by infectious disease on aerosolize gentamicin Smoking Hx Tobacco: No Smoker: Never Smoker Type: N/A Packs/day: N/A Are you/the child exposed to second-hand smoke: No Alcohol Alcohol: No Hx of Drug Use Drug Use? No Review of Systems Constitutional No: chills. Skin No: ecchymosis. Immune/allergy No: anaphalaxis. Eyes No: vision loss. ENT No: hearing loss. Respiratory Positive for: non-productive. Cardiovascular No: chest pain. GI Positive for: abdomen, diarrhea. Musculoskeletal No: extremity swelling. Heme No: bruising. Endocrine No: cold intolerance. Neurological No: change in LOC. 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 I will plan to send stool studies. Follow-up on her CT scan. May benefit from oral contrast CT scan ultimately. If her symptoms somewhat improved consideration may be given for possible colonoscopy. However, if ongoing assessment is consistent with true ileocolic intussusception consideration should be given for resection. at 1914
[2016-09-25 19:27] VITALS: BP 155/78
[2016-09-25 20:43] VITALS: BP 142/79
[2016-09-26 03:58] VITALS: BP 140/77
[2016-09-26 07:05] LABS: LYMPH # 1.4 K/mm3 (0.7-4.5); LYMPH % 19.1 % (10-50.0)
[2016-09-26 08:22] VITALS: BP 140/77
[2016-09-26 08:33] VITALS: BP 143/76
--- NOTE | 2016-09-26 08:56 | HISTORY AND PHYSICAL REPORT ---
History and Physical ([facility]) Date of admission: 09/25/16 Chief complaint: Right sided abdominal pain diarrhea History: History of Present Illness: Ms. Lomas is an 81-year-old white female. 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 She had been hospitalized in late July with a change in bowel habits. At that time she had undergone a noncontrast CT scan which revealed findings suggestive of ileocolic intussusception. Her symptoms actually completely resolved during that hospitalization and she underwent follow-up CT scan with oral contrast later during that admission which revealed findings more suggestive of right-sided colitis. She stated she had been doing well at home as an outpatient without any such symptoms until last Sunday. She states that she had eaten some spicy food and then developed significant diarrhea with watery stools for several days. She saw Dr. Huang and was started on metronidazole on 09/22/16. She had ongoing symptoms of LEFT lower quadrant pain as well as ongoing diarrhea. She presented to the emergency department for evaluation. A CT scan was performed without contrast which was read as ileocolic intussusception. She was admitted and Dr. Danielle was consulted. She denies any nausea or vomiting. Past Medical History: Medical History: CAD? No Angina: No DC: No Hypertension? Yes Hyperlipidemia? Yes CHF? No DVT? No PE? No COPD? No Asthma? No Anemia? No GERD? Yes Gastric ulcers? No GI Bleed? No Hernia? No Thyroid Problems? Yes Hypothyroidism? Yes CVA? No Seizures? No Diabetes? No Renal Insuffiency? No UTI? Yes Stones? No BPH? No GB Disease: No Nephritic Syndrome? No Asplenia? No Hepatitis? No Sickle Cell Disease? No Arthritis? No Migraines? No Cataracts? Yes Glaucoma? No MRSA? Yes HIV? No TB? No Anxiety? No Depression? No Cancer? Yes Site: BREAST RIGHT More? Yes Additional hx: 1. MRSA LEFT LUNG Surgical history: Previous Surgery?Y 1. BREAST BX 2. R LUMPECTOMY W/NODES D/T BREAST [id number] 3. BILAT BREASTS-FIBROCYSTIC WITH MULTIPLE LUMPS REMOVED 4. LT AND RT CATARACT 5. CHOLECYSTECTOMY Medications: Active Scripts Metronidazole (Flagyl) 500 MG PO Q8 #20 TAB Prov: 08/16/16 Reported Medications Levothyroxine Sodium (Levothyroxine 0.075MG) 0.075 MG PO DAILY METOPROLOL SUCCINATE XL (Metoprolol Succinate) 100 MG PO DAILY PRAVASTATIN SODIUM (Pravastatin Sodium) 40 MG PO QHS Pantoprazole Sodium (Protonix 40MG TAB) 40 MG PO QHS Lisinopril 20 MG PO DAILY Aspirin 81 MG PO QHS Allergies: Coded Allergies: levocetirizine (From Xyzal) (Severe, TONGUE SWELLS, DIZZINESS 03/24/16) linezolid (From Zyvox) (Severe, TONGUE SWELLS 03/24/16) Penicillins (Intermediate, I-HIVES 03/24/16) tetracycline (Intermediate, TONGUE SWELLS 03/24/16) Sulfa (Sulfonamide Antibiotics) (Mild, DIZZINESS 03/24/16) ciprofloxacin (From Cipro) (Mild, DIZZINESS 03/24/16) nitrofurantoin (From Macrobid) (Mild, DIZZINESS 03/24/16) Family History: Family history: Postive for: CAD, HTN. Social History: Smoking Hx Tobacco: No Smoker: Never Smoker Type: N/A Packs/day: N/A Are you exposed to second hand No Alcohol: Alcohol: No Hx of Drug Use: Drug Use? No Review of Systems: Constitutional Positive for: fatigue, lethargy, malaise, weak. ENT No: nasal congestion, sore throat. Cardiovascular No: chest pain, edema, palpitations. Respiratory Positive for: productive cough (sputum). No: shortness of air, wheezing. GI Positive for: abdominal pain (right and left side), diarrhea. No: constipation, hematochezia, melena, nausea, vomitting. (female) No: frequency, hematuria. Neurological Positive for: weakness. No: headache, syncope. Musculoskeletal No: extremity pain, joint pain, myalgias. Physical Exam: Vital signs: 1ST Vital Signs Result Date Time Pulse Ox 94 09/25 1455 B/P 102/70 09/25 1455 Temp 97.9 09/25 1455 Pulse 83 09/25 1455 Resp 20 09/25 1455 O2 Delivery ROOM AIR 09/25 1903 Exam: General appearance: alert, awake, no acute distress Eyes: EOM's w/normal ROM, PERRLA ENT: nose normal, pharynx normal, tympanic membranes normal, dry mucous membranes Neck: non-tender, full range of motion, supple Cardiovascular: regular rate & rhythm Respiratory: clear to auscultation ABD: non-distended, normal bowel sounds, no rebound, soft, no guarding, ttp in the RMQ and RLQ Extremities: no peripheral edema Musculoskeletal: equal muscle strength, motor intact, sensation intact Skin: normal color Neuro: normal mood/affect, oriented, speech clear Lab data: Labs: Laboratory Tests 09/26/16 0600: Sodium 138, Potassium 3.9, Chloride 107, Carbon Dioxide 18 L, BUN 41 H, Creatinine 2.5 H, Estimated Creat Clear 17 L, Estimated GFR (MDRD) 18 *L, Glucose 89, Calcium 7.9 L, WBC 7.2, RBC 3.48 L, Hgb 10.0 L, Hct 31.2 L, MCV 89.5, RDW 15.7, Plt Count 232, MPV 5.7 L, Gran % 76.7, Gran # 5.5, Lymphocytes % 19.1, Monocytes % 3.8, Eosinophils % 0.2, Basophils % 0.2, Lymphocytes # 1.4, Monocytes # 0.3, Eosinophils # 0.0, Basophils # 0.0, PUBS MCHC 31.9, MCH 28.6 09/25/16 1522: Sodium 134 L, Potassium 4.1, Chloride 100, Carbon Dioxide 20 L, BUN 43 H, Creatinine 3.4 H, Estimated Creat Clear 12 L, Estimated GFR (MDRD) 13 *L, Glucose 101, Calcium 8.5, Total Bilirubin 0.3, AST 37, ALT 21, Alkaline Phosphatase 43 L, Total Protein 8.3 H, Albumin 2.9 L, Globulin 5.4 H, Albumin/Globulin Ratio 0.5 L, Amylase 42, Lipase 194, WBC 8.0, RBC 3.84 L, Hgb 11.0 L, Hct 34.4 L, MCV 89.4, RDW 15.9, Plt Count 269, MPV 6.1 L, Gran % 79.1 , Gran # 6.3, Lymphocytes % 16.9, Monocytes % 3.4, Eosinophils % 0.2, Basophils % 0.3, Lymphocytes # 1.3, Monocytes # 0.3, Eosinophils # 0.0, Basophils # 0.0, PUBS MCHC 31.3 L, MCH 28.0 Microbiology 09/26 1747 STOOL: Escherichia coli Shiga Toxins EIA - ORD 09/26 1747 STOOL: Campylobactor Susceptibility - ORD 09/26 1747 STOOL: Campylobactor Result 4 - ORD 09/25 174 STOOL: Campylobactor Result 3 - ORD 09/26 1747 STOOL: Campylobactor Result 2 - ORD 09/25 174 STOOL: Campylobactor Result 1 - ORD 09/25 174 STOOL: Campylobacter Culture - ORD 09/26 1747 STOOL: Antimicrobic Susceptibility - ORD 09/26 1747 STOOL: Stool Culture Result 4 - ORD 09/25 174 STOOL: Stool Culture Result 3 - ORD 09/26 1747 STOOL: Stool Culture Result 2 - ORD 09/26 1747 STOOL: Stool Culture Result 1 - ORD 09/26 1747 STOOL: Salmonella/Shigella Screen - ORD 09/26 1747 STOOL: Antimicrobic Susceptibility - ORD 09/26 1747 STOOL: Ova and Parasite Result 4 - ORD 09/25 174 STOOL: Ova and Parasite Result 3 - ORD 09/26 1747 STOOL: Ova and Parasite Result 2 - ORD 09/25 174 STOOL: Ova and Parasite Result 1 - ORD 09/25 174 STOOL: Ova and Parasites - ORD Radiology results: Results: CT abd 1. Ileocolic intussusception as described above. No evidence of bowel obstruction. 2. No change splenic lesion. 3. There is thickening of the tip of the cecum which is involved within the intussusception. This could be inflammatory or neoplastic. Follow-up suggested. Diagnosis(es): 1. Abdominal pain Status: Acute 2. Diarrhea Status: Acute 3. JALYN (acute kidney injury) Status: Acute 4. HTN (hypertension) Status: Chronic 5. Hypothyroidism Status: Chronic 6. GERD (gastroesophageal reflux disease) Status: Chronic Plan: According to Dr. 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 He ordered stool studies and felt she may benefit from oral contrast CT scan. If her symptoms do improve, he may possibly do a colonoscopy, but if her CT shows true ileocolic intussusception, she will need possible resection. Awaiting stool studied. Dr. Danielle to follow. (Denisse Erickson) Diagnosis(es): 1. Abdominal pain Status: Acute 2. Diarrhea Status: Acute 3. JALYN (acute kidney injury) Status: Acute 4. HTN (hypertension) Status: Chronic 5. Hypothyroidism Status: Chronic 6. GERD (gastroesophageal reflux disease) Status: Chronic Plan: Patient seen and agree with above note. (Ben Huang MD) at 0855 at 0905
--- NOTE | 2016-09-26 09:51 | PHARMACY CLINIC NOTE ---
Patient Demographics Patient Demographics Admission date: 09/25/16 Date: 09/26/16 Time: 0951 Allergies Coded Allergies: levocetirizine (From Xyzal) (Severe, TONGUE SWELLS, DIZZINESS 03/24/16) linezolid (From Zyvox) (Severe, TONGUE SWELLS 03/24/16) Penicillins (Intermediate, I-HIVES 03/24/16) tetracycline (Intermediate, TONGUE SWELLS 03/24/16) Sulfa (Sulfonamide Antibiotics) (Mild, DIZZINESS 03/24/16) ciprofloxacin (From Cipro) (Mild, DIZZINESS 03/24/16) nitrofurantoin (From Macrobid) (Mild, DIZZINESS 03/24/16) HEIGHT- FT: 5 IN: 3.00 K.264 VTE General Information Labs: Laboratory Tests 09/26 09/25 0600 1522 Hematology Hgb (12.2 - 16.2 g/dL) 10.0 L 11.0 L Hct (37.0 - 47.0 %) 31.2 L 34.4 L Plt Count (142 - 424 K/mm3) 232 269 Disclaimer The following section includes nursing documentation that has been pulled in for pharmacy review. Patient's VTE score: 0 Patient's VTE Risk: VERY LOW RISK Clinical trial participant? No VTE prophylaxis NQF [id number] VTE prophylaxis ordered? Yes Type of prophylaxis/treatment: GARRICK at 0951
--- NOTE | 2016-09-26 12:55 | SURGEON PROGRESS NOTE ---
Subjective data Subjective data: JAKE RAMAN is a 81 F .Patient denies complaint of nausea and vomitting.She reports her last pain level as 10 on a 0-10 pain scale. Patient has been having colicky type abdominal pain. Still having significant diarrhea. Objective data Vitals,I&O,and Labs: Vital signs, intake and output,and available lab data for the last 24 hours is as noted below. Vital Signs Date Time Temp Pulse Resp B/P Pulse O2 O2 Flow FiO2 Ox Delivery Rate 09/26 1245 16 09/26 0833 97.9 83 16 143/76 90 ROOM AIR / 0822 97.8 85 14 140/77 91 / 0751 14 / 0358 97.8 85 12 140/77 91 ROOM AIR / 2043 90 03/ 2043 99.0 90 18 142/79 / 2043 89 ROOM AIR 03/ 1927 99.1 86 14 155/78 93 ROOM AIR 03/ 1903 98.7 87 20 149/83 93 ROOM AIR 03/ 1839 97.9 82 20 119/75 92 03/06 1641 97.9 82 20 125/72 92 03/06 1509 97.9 83 20 102/70 94 03/06 1455 97.9 83 20 102/70 94 03/07 0700 03/06 2300 / 1500 Intake Total 532 200 Output Total Balance 532 200 Intake, IV 532 Intake, Oral 200 Output, Stool Patient 135 lb 134 lb Weight Laboratory Tests Test Result Date Time Chemistry Sodium (mmoL/L) 138 09/26 0500 Potassium (mmoL/L) 3.9 09/26 0500 Chloride (mmoL/L) 107 09/26 0600 Carbon Dioxide (mmoL/L) 18 09/26 0500 BUN (mg/dL) 41 09/26 0500 Creatinine (mg/dL) 2.5 09/26 0500 Estimated Creat Clear (ML/MIN) 17 09/26 599 Estimated GFR (MDRD) (ML/MIN) 18 09/26 0500 Glucose (mg/dL) 89 /01 2500 Calcium (mg/dL) 7.9 09/26 0600 Total Bilirubin (mg/dL) 0.3 09/25 1522 AST (U/L) 37 09/25 1522 ALT (U/L) 21 09/25 1522 Alkaline Phosphatase (U/L) 43 / 1522 Total Protein (gm/dL) 8.3 / 1522 Albumin (gm/dL) 2.9 / 1522 Globulin (gm/dL) 5.4 / 1522 Albumin/Globulin Ratio 0.5 / 1522 Amylase (U/L) 42 03/ 1522 Lipase (U/L) 194 / 1522 Hematology WBC (K/MM3) 7.2 09/26 0500 RBC (M/mm3) 3.48 09/26 599 Hgb (g/dL) 10.0 09/26 599 Hct (%) 31.2 09/26 599 MCV (fl) 89.5 09/26 599 RDW (%) 15.7 09/26 599 Plt Count (K/mm3) 232 09/26 599 MPV (fl) 5.7 09/26 599 Gran % (%) 76.7 09/26 599 Gran # (K/mm3) 5.5 09/26 599 Lymphocytes % (%) 19.1 /01 2500 Monocytes % (%) 3.8 /599 Eosinophils % (%) 0.2 /01 2500 Basophils % (%) 0.2 /01 2500 Lymphocytes # (K/mm3) 1.4 /01 2500 Monocytes # (K/mm3) 0.3 /01 2500 Eosinophils # (K/mm3) 0.0 /01 2500 Basophils # (K/MM3) 0.0 /01 2500 PUBS MCHC (g/dl) 31.9 09/26 0500 Immunology MCH (pg) 28.6 09/26 599 Assessment findings Assessment Exam General appearance: normal appearance, alert ABD: soft Comment: She has mild right-sided abdominal tenderness without guarding or rebound. Patient plan Plan: Antibiotics, IV fluids Additional data: I will review her CT scan with radiology. May consider non-prepped colonoscopy tomorrow to differentiate inflammatory bowel disease versus neoplasm versus inflammation. However, she could very well require ileocecal resection. at 1255
[2016-09-26] MEDS ORDERED: ALLEGRA ALLERG180 MG PO (15:29)
[2016-09-26] MEDS ORDERED: PROBIOTIC FORM1 EACH PO (15:29)
[2016-09-26] MEDS ORDERED: CITRACAL + BON1 EACH PO (15:30)
[2016-09-26] MEDS ORDERED: CENTRUM SILVER1 EACH PO (15:32)
[2016-09-26 16:36] VITALS: BP 140/75
[2016-09-26 20:02] VITALS: BP 151/84
[2016-09-26 20:28] VITALS: BP 151/84
[2016-09-27] VITALS (14 sets, daily range): BP systolic 127–166; BP diastolic 62–100
--- NOTE | 2016-09-27 08:22 | ACUTE CARE PROGRESS NOTE (QUA) ---
See Addendum Progress Notes Subjective Date 09/27/16 Time 0819 Note Patient states she feels like she is getting pneumonia again. She has been coughing. Her abdomen is feeling slightly better however she still has pain in her RIGHT mid to lower quadrant. She is not anything to eat this morning. Objective Findings Last VS-Temp:98.9 B/P:156/86 Pulse:96 Resp:18 SaO2:89 ROOM AIR Last weight lbs:135 oz:5 K.377 Method:Bed Scales Exam General appearance: alert, awake, no acute distress Cardiovascular: regular rate & rhythm Respiratory: faint basilar rales with congested cough ABD: non-distended, normal bowel sounds, no rebound, soft, no guarding, ttp in the RMQ and RLQ Extremities: no peripheral edema Assessment/Plan Problem List 1. Abdominal pain Status: Acute 2. Diarrhea Status: Acute 3. JALYN (acute kidney injury) Status: Acute 4. HTN (hypertension) Status: Chronic 5. Hypothyroidism Status: Chronic 6. GERD (gastroesophageal reflux disease) Status: Chronic 7. Rales Plan: Dr. Danielle is planned a colonoscopy for today. Will get a stat chest x-ray to rule out pneumonia before her colonoscopy. She had to be started on oxygen due to low oxygen saturations during the night. This inpt stay is expected to cross 2 MNs from start of care Yes at 0822
--- NOTE | 2016-09-27 09:13 | RADIOLOGY REPORT PS360 ---
CHEST(2 VIEWS-NOT PORTABLE) HISTORY: Follow-up pneumonia CRACKLES ORDERING PHYSICIAN: Ben Huang MD PATIENT AGE: 81 years COMPARISON: 08/12/2016 FINDINGS: Normal heart size. There is tortuosity of the thoracic aorta.. Chronic emphysematous changes are present with pulmonary fibrosis. Chronic infiltrate is present in the left lower lobe in the retrocardiac region. There is coarsening of bronchovascular markings which are slightly worse in the mid lung zones. No acute bony abnormalities. IMPRESSION: Chronic changes with chronic left lower lobe infiltrate. Slight increased prominence of the bronchovascular markings which may be due to superimposed interstitial pneumonitis superimposed upon chronic changes
--- NOTE | 2016-09-27 11:47 | Operative Note ---
Endoscopy Report Date: 09/27/16 Preoperative diagnosis: Abdominal pain and diarrhea Procedure Type of procedure: Total colonoscopy Indications: 81-year-old white female. She had been admitted in July with abdominal pain and partial small bowel obstruction. CT scanning at that time revealed findings possibly consistent with ileocolic intussusception. Her symptoms completely resolved and she was doing quite well. She presented to the emergency department approximately 48 hours ago with abdominal pain and profound diarrhea. She was admitted for inpatient management and surgical consultation was obtained. Her symptoms persisted. Plan was made for unprepped colonoscopy to better ascertain the etiology of her problem. Consent was obtained and patient was taken to same-day surgery endoscopy procedure room. She was not administered preprocedure colonic preparation due to the diarrhea and possible partial obstruction. She was positioned in a lateral decubitus position. Adequate intravenous sedation was achieved with anesthesia titration of propofol. Variable stiffness Olympus colonoscope was inserted via the anus. There was some liquid blood tinged stool. However the colonoscope was able to be advanced through the colon and visualization was actually quite good. In the RIGHT colon there was a large nearly obstructing mass. Multiple attempts were made to pass the colonoscope beyond this. This was unsuccessful. This appeared to be located within the RIGHT colon. The ileocecal valve however could not be identified. As this appeared to be nearly obstructing neoplasm causing partial obstruction it was felt that resection is inevitable and biopsies were not performed. Colonoscope was slowly withdrawn as irrigation was performed thoroughly to cleanse the colon in anticipation of resection. Colonoscope was withdrawn. Findings 1. MASS Recommendations 1. COLON RESECTION at 1144
--- NOTE | 2016-09-27 12:57 | ACUTE CARE PROGRESS NOTE (QUA) ---
Progress note: - Patient feels well and is without complaints after colonoscopy. I explained to her the findings. I do feel that she needs resection rather soon due to impending obstruction. I discussed and offered this to the patient. Plan will be for RIGHT colon resection tomorrow. at 1519
[2016-09-28] VITALS (20 sets, daily range): BP systolic 120–190; BP diastolic 61–98
[2016-09-28 06:35] LABS: HEMOGLOBIN 9.4 g/dL (12.2-16.2); LYMPH # 1.1 K/mm3 (0.7-4.5); LYMPH % 14.4 % (10-50.0)
[2016-09-28 07:20] LABS: ABO BLOOD TYPE A; RH BLOOD TYPE NEGATIVE
[2016-09-28 07:24] LABS: ANTIHUMAN GLOB CROSSMATCH COMPAT
[2016-09-28 07:25] LABS: ANTIHUMAN GLOB CROSSMATCH COMPAT
--- NOTE | 2016-09-28 08:28 | ACUTE CARE PROGRESS NOTE (QUA) ---
Progress Notes Subjective Date 09/28/16 Time 0825 Note Patient states she is feeling very weak this morning. She is hungry but is NPO for surgery. She states her abdominal pain has improved slightly. She slept well last night. Objective Findings Last VS-Temp:98.6 B/P:159/80 Pulse:86 Resp:18 SaO2:95 ROOM AIR Last weight lbs:135 oz:5 K.377 Method:Bed Scales Laboratory Tests 09/28/16 0605: MCH 28.2 09/28/16 0605: Sodium 141, Potassium 4.7, Chloride 109 H, Carbon Dioxide 20 L, BUN 26 H, Creatinine 1.5 H, Estimated Creat Clear 29 L, Estimated GFR (MDRD) 33 L, Glucose 109 H, Calcium 7.8 L, WBC 7.9, RBC 3.32 L, Hgb 9.4 L, Hct 30.3 L, MCV 91.1, RDW 16.0, Plt Count 284, MPV 5.8 L, Gran % 80.0, Gran # 6.3, Lymphocytes % 14.4, Monocytes % 5.0, Eosinophils % 0.3, Basophils % 0.3, Lymphocytes # 1.1, Monocytes # 0.4, Eosinophils # 0.0, Basophils # 0.0, PUBS MCHC 31.0 L, Antibody Screen NEGATIVE, Miscellaneous Test NEGATIVE Microbiology 09/28 2111 SPUTUM: Sputum Culture - RES 09/28 2111 SPUTUM: Gram Stain - RES Exam General appearance: alert, awake, Does not appear to feel well Cardiovascular: regular rate & rhythm Respiratory: faint basilar rales, congested cough ABD: non-distended, normal bowel sounds, no rebound, soft, no guarding, slight ttp in the RMQ and RLQ Extremities: no peripheral edema Assessment/Plan Problem List 1. Colonic mass Status: Acute 2. Abdominal pain Status: Acute 3. Diarrhea Status: Acute 4. JALYN (acute kidney injury) Status: Acute 5. HTN (hypertension) Status: Chronic 6. Hypothyroidism Status: Chronic 7. GERD (gastroesophageal reflux disease) Status: Chronic 8. Rales Plan: Patient is scheduled to have a colon resection for colon mass today at [address] Danielle to follow. This inpt stay is expected to cross 2 MNs from start of care Yes (Denisse Erickson) Assessment/Plan Problem List 1. Colonic mass Status: Acute 2. Abdominal pain Status: Acute 3. Diarrhea Status: Acute 4. JALYN (acute kidney injury) Status: Acute 5. HTN (hypertension) Status: Chronic 6. Hypothyroidism Status: Chronic 7. GERD (gastroesophageal reflux disease) Status: Chronic 8. Rales Comments: Patient seen and a agree with above note. (Ben Huang MD) at 0828 at 0880
--- NOTE | 2016-09-28 13:03 | Operative Note ---
Surgeon/Diagnoses Surgeon/Varnishing Unit Operator(s) Date of procedure: 09/28/16 Surgeon: Devon Danielle Varnishing Unit Operator(s): Beth Puente Diagnoses Pre-op diagnosis: RIGHT colon mass Post-op diagnosis Same Procedure Procedure Procedure: RIGHT hemicolectomy with ileocolic anastomosis Indications: JAKE RAMAN is a 81 year-old Female. She had been admitted about 6 weeks ago with abdominal pain and signs of partial bowel obstruction. There was a concerns for ileocolic intussusception. Her symptoms actually improved and she developed diarrhea and follow-up CT scan most likely more consistent with colitis. Plan was made for outpatient follow for possible colonoscopy. Patient was asymptomatic for several weeks and then recently developed LEFT lower quadrant abdominal pain and severe diarrhea. She presented to the emergency department where she underwent CT scan which once again revealed findings consistent with ileocolic intussusception. Her symptoms are mainly diarrhea with some colicky type pain. She underwent colonoscopy, unprepped, yesterday and she actually had quite clean LEFT and transverse colon. She had what appeared to be mass like lesion in the RIGHT colon which could not be traversed. There was significant inflammation. Given the ongoing ileocolic intussusception with probable mass plan was made for RIGHT hemicolectomy. Findings: Ileocolic intussusception with mass like effect Procedure Description: Consent was obtained and patient was taken to the operating room. Please note that she was given oral preoperative antibiotic and intravenous antibiotic hospice community liaison to the operating room. She had sequential compression devices placed to bilateral lower extremities was given low molecular weight heparin. In the operating room general anesthesia was induced via endotracheal tube. Tovar catheter was placed for bladder decompression. Abdomen was prepped and draped in the standard surgical fashion. Midline laparotomy incision was made. Dissection was carried down through subcutaneous tissues and peritoneal cavity was entered. She had a palpable mass like lesion in the RIGHT colon near the hepatic flexure. Exposure was achieved. The colon was mobilized by incising the peritoneum along the white line of Toldt. There was significant inflammatory response with edema and reactive fluid within the abdomen however. She appeared to have significant ileocolic intussusception with presumed mass. Proximal transverse colon was divided with MIKE-75 type stapling device. Ileum was divided with MIKE-75 type stapling device. The mesentery was divided with Neil ultrasonic harmonic marisela. Vessels were clamped divided and ligated with 0 Vicryl ties. Larger branching vessels were doubly ligated with 0 Surgilon ties. The RIGHT colon was sent off as specimen. [id number], functional end-to-end ileocolic anastomosis was performed with a MIKE-75 type stapling device. The enterotomy was closed with a TX 60 B type stapling device. Several seromuscular 3-0 Surgilon sutures were placed along the staple line and at the staple line angle. The mesenteric defect was closed with a running 2-0 Vicryl. Enteric contents returned to normal anatomic position. Peritoneal cavity was thoroughly irrigated with several liters of saline. There appeared to be good hemostasis. Fascia was closed with a running #2 Novafil 2. Subcu tissues were irrigated. Skin was closed with rebeca. Please note that patient had nasogastric tube placed intraoperatively and this was confirmed to be within the stomach. Clean dry sterile dressing was applied. EBL (ml): 75 Anesthesia: GETA Specimens: RIGHT colon Disposition Disposition: To PACU at 1303
[2016-09-28 15:00] LABS: URINE BILIRUBIN - DIPSTICK NEGATIVE (NEG); URINE BLOOD TRACE-LYSED (NEG)
[2016-09-28 15:12] LABS: URINE SQUAMOUS CELLS OCC #/hpf (0-5)
[2016-09-28 15:34] LABS: ARTERIAL ABE -11.5 MMOL/L (-2.4-+2.3); ARTERIAL PO2 232.6 MMHG (80-100); ARTERIAL TCO2 16.1 MMOL/L (23-27); OXYGEN 60; VENT RATE 12
[2016-09-28 15:35] LABS: ALLEN'S TEST ACCEPTABLE
--- NOTE | 2016-09-28 16:05 | ACUTE CARE PROGRESS NOTE (QUA) ---
Progress Notes Subjective Date 09/28/16 Time 1556 Note Patient was unable to be extubated after surgery today due to poor respiratory effort and sedation. She was reintubated in the PACU. Objective Findings Laboratory Tests 09/28/16 1529: ABG pH 7.28 L, ABG pCO2 (Temp Corrct 32.6 L, ABG pO2 (Temp Correct 232.6 H, ABG HCO3 15.1 L, ABG Total CO2 16.1 L, ABG O2 Sat (Calculated) 99.5, ABG Base Excess -11.5 L, Nithin Test ACCEPTABLE, Vent Rate 12, Tidal Volume 450, POC PEEP 5, Blood Gas Comments LEFT RADIAL 09/28/16 0605: MCH 28.2 09/28/16 0605: Sodium 141, Potassium 4.7, Chloride 109 H, Carbon Dioxide 20 L, BUN 26 H, Creatinine 1.5 H, Estimated Creat Clear 29 L, Estimated GFR (MDRD) 33 L, Glucose 109 H, Calcium 7.8 L, WBC 7.9, RBC 3.32 L, Hgb 9.4 L, Hct 30.3 L, MCV 91.1, RDW 16.0, Plt Count 284, MPV 5.8 L, Gran % 80.0, Gran # 6.3, Lymphocytes % 14.4, Monocytes % 5.0, Eosinophils % 0.3, Basophils % 0.3, Lymphocytes # 1.1, Monocytes # 0.4, Eosinophils # 0.0, Basophils # 0.0, PUBS MCHC 31.0 L, Antibody Screen NEGATIVE, Miscellaneous Test NEGATIVE 09/28/16 0600: Urine Color YELLOW, Urine Appearance CLEAR, Urine pH 5.5, Ur Specific [place] 1.025, Urine Protein 1+ H, Urine Ketones TRACE H, Urine Blood TRACE-LYSED, Urine Nitrate NEGATIVE, Urine Bilirubin NEGATIVE, Urine Urobilinogen 0.2, Ur Leukocyte Esterase NEGATIVE, Urine WBC OCC, Ur Squamous Epith Cells OCC, Urine Bacteria TRACE, Hyaline Casts OCC, Fine Granular Casts 5-10, Urine Mucus OCC, Urine Glucose NEGATIVE Microbiology 09/28 2111 SPUTUM: Sputum Culture - RES 09/28 2111 SPUTUM: Gram Stain - RES Last VS-Temp:98.0 B/P:159/80 Pulse:86 Resp:18 SaO2:95 ROOM AIR Last weight lbs:135 oz:5 K.377 Method:Floor Scales Exam General appearance: sedated, awakens to voice then falls back asleep Cardiovascular: regular rate & rhythm Respiratory: good air movement (diminished in bases) Assessment/Plan Problem List 1. Colonic mass Status: Acute 2. Respiratory failure, acute Status: Acute 3. Rales Status: Acute 4. Abdominal pain Status: Acute 5. Diarrhea Status: Acute 6. JALYN (acute kidney injury) Status: Acute 7. HTN (hypertension) Status: Chronic 8. Hypothyroidism Status: Chronic 9. GERD (gastroesophageal reflux disease) Status: Chronic This inpt stay is expected to cross 2 MNs from start of care Yes Comments: Plan to continue ventilatory support tonight, wean FiO2 now to 40% due to elevated pO2. at 1604
--- NOTE | 2016-09-28 16:17 | RADIOLOGY REPORT PS360 ---
CHEST-PORTABLE HISTORY: INTUBATED ORDERING PHYSICIAN: Ben Huang MD PATIENT AGE: 81 years COMPARISON: 09/27/2016 FINDINGS: There has been interval insertion of a nasogastric tube. The tip is low near the ostium of the right mainstem bronchus and should be withdrawn approximately 3 to 4 cm. Nasogastric tube has also been inserted with the tip not visible on the film but below the GE junction. There are low lung volumes with chronic pulmonary changes. Chronic infiltrate left lower lobe. IMPRESSION: Low position of endotracheal tube. NG tube tip not visible on the film below the diaphragm. Chronic pulmonary parenchymal changes.
--- NOTE | 2016-09-28 16:56 | RADIOLOGY REPORT PS360 ---
CHEST-PORTABLE HISTORY: Endotracheal tube repositioning INTUBATED ORDERING PHYSICIAN: Ben Huang MD PATIENT AGE: 81 years COMPARISON: Same day FINDINGS: Endotracheal tube tip is in good position approximate 3 cm by the hiro. No other changes evident. NG tube tip is in region of the body of stomach. IMPRESSION: Good position of endotracheal tube and nasogastric tube
[2016-09-29] VITALS (29 sets, daily range): BP systolic 148–196; BP diastolic 84–109
--- NOTE | 2016-09-29 07:10 | SURGEON PROGRESS NOTE ---
Subjective data Subjective data: JAKE RAMAN is a 81 F .Patient denies complaint of nausea and vomitting.She reports her last pain level as 0 on a 0-10 pain scale. Patient remained on ventilator overnight. Assessment findings Assessment Exam General appearance: alert ABD: soft Patient plan Plan: IV fluids, Possible extubate Additional data: Patient on CPAP with good ventilation. Check ABG. Possible extubate. If patient able to be extubated this morning may be able to DC Bebe later today. at 0709
[2016-09-29 07:20] LABS: ARTERIAL PO2 88.7 MMHG (80-100)
[2016-09-29 07:21] LABS: ALLEN'S TEST PATIENT UNABLE; ARTERIAL ABE -8.7 MMOL/L (-2.4-+2.3); ARTERIAL TCO2 17.4 MMOL/L (23-27); OXYGEN 30; PRESSURE SUPPORT 10
--- NOTE | 2016-09-29 07:57 | RADIOLOGY REPORT PS360 ---
CHEST-PORTABLE HISTORY: Respiratory failure INTUBATED ORDERING PHYSICIAN: Ben Huang MD PATIENT AGE: 81 years COMPARISON: 09/28/2016 FINDINGS: Endotracheal tube remains in good position with the tip 3 cm by the hiro. Nasogastric tube tip is in region of the body. Left lower lobe consolidation and/or volume loss once again noted not significantly changed. Chronic changes are present within the remaining lungs. No evidence of CHF. Small right pleural effusion suspected. IMPRESSION: 1. Good position of endotracheal tube and nasogastric tube. 2. Chronic changes with chronic consolidation in the left lower lobe and small right effusion
--- NOTE | 2016-09-29 08:42 | ACUTE CARE PROGRESS NOTE (QUA) ---
Progress Notes Subjective Date 09/29/16 Time 0836 Note Nurse reports patient had a good night last night. She has been weaned down to CPAP and 30% FiO2. Objective Findings Laboratory Tests 09/29/16 0713: ABG pH 7.38, ABG pCO2 (Temp Corrct 28.9 L, ABG pO2 (Temp Correct 88.7, ABG HCO3 16.5 L, ABG Total CO2 17.4 L, ABG O2 Sat (Calculated) 96.4, ABG Base Excess - 8.7 L, Nithin Test PATIENT UNABLE, Tidal Volume 443, POC PEEP 5, Pressure Support 10, Blood Gas Comments LEFT RADIAL 09/28/16 1529: ABG pH 7.28 L, ABG pCO2 (Temp Corrct 32.6 L, ABG pO2 (Temp Correct 232.6 H, ABG HCO3 15.1 L, ABG Total CO2 16.1 L, ABG O2 Sat (Calculated) 99.5, ABG Base Excess -11.5 L, Nithin Test ACCEPTABLE, Vent Rate 12, Tidal Volume 450, POC PEEP 5, Blood Gas Comments LEFT RADIAL Microbiology 09/28 143 SPUTUM: Sputum Culture - RES 09/28 143 SPUTUM: Gram Stain - RES Vital Signs Date Time Temp Pulse Resp B/P Pulse O2 O2 Flow FiO2 Ox Delivery Rate 09/29 0800 30 09/29 0800 97.1 82 18 187/96 99 OXYGEN 2 / 0800 99 / 0732 97.1 87 22 180/91 99 03/10 0700 97.1 87 22 180/91 99 OXYGEN /10 0632 17 / 0622 100 OXYGEN /10 0600 2 /10 0600 40 / 0600 97.9 72 17 189/93 100 OXYGEN 03/10 0600 100 03/10 0500 98.4 81 21 187/96 100 OXYGEN 03/10 0400 40 03/10 0400 97.4 80 17 176/87 100 03/10 0400 100 03/10 0300 97.3 73 22 184/89 100 OXYGEN 03/10 0200 2 03/10 0200 40 03/10 0200 99.1 78 20 184/90 100 OXYGEN 03/10 0200 100 03/10 0100 98.4 75 20 178/90 100 OXYGEN 03/10 0000 2 03/10 0000 40 03/10 0000 98.7 88 20 177/91 100 OXYGEN 03/10 0000 98.7 88 20 177/91 100 03/09 2300 98.3 76 17 169/89 100 OXYGEN 03/09 2200 2 03/ 2200 40 03/09 2200 100 03/09 2200 98.3 83 19 167/87 100 OXYGEN 03/09 2110 98.0 78 17 169/89 100 /2009 97.7 78 17 174/85 100 03/1999 2 /1999 40 /1999 100 OXYGEN /1999 97.6 80 16 175/83 100 03/1999 100 03/09 1915 97.5 82 20 174/98 100 OXYGEN / 1910 76 18 179/73 100 03/09 1842 40 03/ 1810 75 18 174/98 100 03/ 1710 74 18 186/91 100 03/09 1700 40 03/ 1650 22 03/09 1640 68 16 181/88 100 03/09 1613 87 18 165/81 91 03/09 1610 71 16 179/82 100 03/09 1540 71 16 179/92 100 03/09 1520 40 03/09 1519 98.0 03/09 1510 68 16 190/92 100 03/09 1455 70 21 145/77 100 03/09 1450 130/75 03/09 1440 120/70 03/09 1440 69 19 139/85 100 03/09 1436 98.5 75 20 120/61 100 03/09 1425 75 20 120/61 100 03/09 1415 97.9 81 10 128/74 99 OXYGEN 03/09 1410 87 10 147/75 98 OXYGEN 03/09 1400 89 10 147/78 100 OXYGEN 03/09 1350 88 10 132/79 98 OXYGEN 03/09 1340 86 10 142/74 100 OXYGEN 03/09 1330 87 10 140/75 99 OXYGEN 03/09 1320 85 10 128/70 99 OXYGEN 03/09 1310 98.0 87 12 137/70 85 ROOM AIR I&O Past 24 Hrs-ending at 0700 03/10 0700 Intake Total 500 Output Total 1465 Balance -965 Last VS-Temp:97.1 B/P:187/96 Pulse:82 Resp:18 SaO2:99 OXYGEN Last weight lbs:142 oz:4 K.524 Method:Bed Scales Exam General appearance: alert (intubated) Cardiovascular: regular rate & rhythm Respiratory: good air movement Extremities: edema (trace) Assessment/Plan Problem List 1. Colonic mass Status: Acute 2. Respiratory failure, acute Status: Acute 3. Rales Status: Acute 4. Abdominal pain Status: Acute 5. Diarrhea Status: Acute 6. JALYN (acute kidney injury) Status: Acute 7. HTN (hypertension) Status: Chronic 8. Hypothyroidism Status: Chronic 9. GERD (gastroesophageal reflux disease) Status: Chronic This inpt stay is expected to cross 2 MNs from start of care Yes Comments: Plan extubation this morning. Continue routine post op care. at 0841
--- NOTE | 2016-09-29 17:57 | ACUTE CARE PROGRESS NOTE (QUA) ---
Progress Notes Subjective Date 09/29/16 Time 1755 Note BP's running high. Will add some NTG paste. Assessment/Plan Problem List 1. Colonic mass Status: Acute 2. Respiratory failure, acute Status: Acute 3. Rales Status: Acute 4. Abdominal pain Status: Acute 5. Diarrhea Status: Acute 6. JALYN (acute kidney injury) Status: Acute 7. HTN (hypertension) Status: Chronic 8. Hypothyroidism Status: Chronic 9. GERD (gastroesophageal reflux disease) Status: Chronic Plan: 0.5 inch q 8hrs This inpt stay is expected to cross 2 MNs from start of care Yes at 1750
[2016-09-30] VITALS (18 sets, daily range): BP systolic 126–175; BP diastolic 82–114
--- NOTE | 2016-09-30 08:43 | ACUTE CARE PROGRESS NOTE (QUA) ---
Progress Notes Subjective Date 09/30/16 Time 0839 Note Patient denies any pain this morning. She states she has not had any pain medication. She does have an NG tube still in place. She states she rested comfortably last night. She has had issues with her blood pressure being elevated throughout the night and this morning. She denies SOA. Objective Findings Last VS-Temp:98.2 B/P:167/100 Pulse:95 Resp:18 SaO2:92 ROOM AIR Last weight lbs:143 oz:6 K.034 Method:Bed Scales Exam General appearance: alert, awake, no acute distress ENT: NG in place Cardiovascular: regular rate & rhythm Respiratory: bibasilar rales ABD: non-distended, normal bowel sounds, no rebound, soft, no guarding, some drainage on the dressing, slight ttp around the surgical site Extremities: no peripheral edema Assessment/Plan Problem List 1. Colonic mass Status: Acute 2. Respiratory failure, acute Status: Acute 3. Rales Status: Acute 4. Abdominal pain Status: Acute 5. Diarrhea Status: Acute 6. JALYN (acute kidney injury) Status: Acute 7. HTN (hypertension) Status: Chronic 8. Hypothyroidism Status: Chronic 9. GERD (gastroesophageal reflux disease) Status: Chronic Plan: The patient has had a nitroglycerin patch placed during the night. Her blood pressure is slightly lower, however still elevated. Will discuss blood pressure medications with Dr. Huang. Surgery to follow. This inpt stay is expected to cross 2 MNs from start of care Yes (Denisse Erickson) Assessment/Plan Problem List 1. Colonic mass Status: Acute 2. Respiratory failure, acute Status: Acute 3. Rales Status: Acute 4. Abdominal pain Status: Acute 5. Diarrhea Status: Acute 6. JALYN (acute kidney injury) Status: Acute 7. HTN (hypertension) Status: Chronic 8. Hypothyroidism Status: Chronic 9. GERD (gastroesophageal reflux disease) Status: Chronic Comments: Patient seen and agree with above note. Plan to stop NTG topical and start IV metoprolol. (Ben Huang MD) at 0842 at 0910
--- NOTE | 2016-09-30 09:53 | POST-OP PROGRESS NOTE ---
Post Op Subjective Data Patient is post-op day 2 Subjective data: Feels "about the same". Post op objective data Vitals,I&O,and Labs: Vital signs, intake and output,and available lab data for the last 24 hours is as noted below. Vital Signs Date Time Temp Pulse Resp B/P Pulse O2 O2 Flow FiO2 Ox Delivery Rate 09/30 0808 98.2 95 18 167/100 92 ROOM AIR 09/30 0619 2 09/30 0619 95 ROOM AIR 09/30 0600 86 22 175/103 97 ROOM AIR 09/30 0500 97.7 92 172/106 93 ROOM AIR 09/30 0400 90 172/106 94 ROOM AIR 09/30 0300 92 169/106 93 ROOM AIR 09/30 0200 99 24 175/105 94 ROOM AIR 09/30 0100 97.9 84 23 156/87 92 ROOM AIR 09/30 0000 84 146/87 94 ROOM AIR 09/29 2300 84 148/98 94 ROOM AIR 09/29 2200 98.7 91 172/100 94 ROOM AIR 09/29 2100 95 174/109 93 ROOM AIR 09/29 2000 98.6 101 21 170/107 93 ROOM AIR 03/ 1936 94 ROOM AIR 09/29 1900 98.5 99 18 183/109 94 ROOM AIR / 1830 174/98 03/10 1800 98.2 98 20 177/106 93 ROOM AIR / 1730 179/104 03/10 1700 98.0 90 18 176/98 95 ROOM AIR 03/ 1630 176/98 03/10 1600 98.1 88 16 176/99 95 ROOM AIR 03/ 1530 174/98 03/10 1507 17 03/10 1500 98.3 91 18 175/102 94 ROOM AIR 03/10 1400 98.2 89 18 196/105 94 ROOM AIR / 1300 98.2 90 17 173/84 97 ROOM AIR /10 1200 98.3 81 22 187/94 94 ROOM AIR 03/10 1200 98.1 77 20 191/98 100 03/10 1100 1 03/10 1100 98.1 77 20 191/98 100 OXYGEN 1 03/10 1006 2 / 1006 98.0 85 22 191/96 100 OXYGEN 2 / 1500 03/10 2300 11 0700 Intake Total 273 1106 Output Total 593 468 3117 Balance -673 -106 -6377 Intake, IV 273 1106 Intake, Oral 0 Output, Other 400 Output, Urine 973 977 4016 Patient 65.034 kg Weight Laboratory Tests Test Result Date Time Blood Gas ABG pH (MMOL/L) 7.38 09/29 712 ABG pCO2 (Temp Corrct (MMHG) 28.9 09/29 712 ABG pO2 (Temp Correct (MMHG) 88.7 09/29 712 ABG HCO3 (MMOL/L) 16.5 09/29 712 ABG Total CO2 (MMOL/L) 17.4 09/29 712 ABG O2 Sat (Calculated) (%) 96.4 09/29 712 ABG Base Excess (MMOL/L) -8.7 09/29 712 Nithin Test PATIENT UNABLE 09/29 712 Vent Rate 12 09/28 1528 Tidal Volume 443 09/29 712 POC PEEP 5 09/29 712 Pressure Support 10 09/29 712 Blood Gas Comments LEFT RADIAL 09/29 712 Chemistry Sodium (mmoL/L) 141 09/28 604 Potassium (mmoL/L) 4.7 09/28 604 Chloride (mmoL/L) 109 09/28 604 Carbon Dioxide (mmoL/L) 20 09/28 604 BUN (mg/dL) 26 09/28 604 Creatinine (mg/dL) 1.5 09/28 604 Estimated Creat Clear (ML/MIN) 29 09/28 604 Estimated GFR (MDRD) (ML/MIN) 33 09/28 604 Glucose (mg/dL) 109 09/28 604 Calcium (mg/dL) 7.8 09/28 604 Total Bilirubin (mg/dL) 0.3 09/25 152 AST (U/L) 37 09/25 152 ALT (U/L) 21 09/25 152 Alkaline Phosphatase (U/L) 43 09/25 152 Total Protein (gm/dL) 8.3 09/25 152 Albumin (gm/dL) 2.9 09/25 152 Globulin (gm/dL) 5.4 09/25 1521 Albumin/Globulin Ratio 0.5 09/25 152 Amylase (U/L) 42 09/25 152 Lipase (U/L) 194 09/25 152 Carcinoembryonic Ag (ng/mL) 2.8 09/28 604 Hematology WBC (K/MM3) 7.9 09/28 604 RBC (M/mm3) 3.32 09/28 604 Hgb (g/dL) 9.4 09/28 604 Hct (%) 30.3 09/28 604 MCV (fl) 91.1 09/28 604 RDW (%) 16.0 09/28 604 Plt Count (K/mm3) 284 09/28 604 MPV (fl) 5.8 09/28 604 Gran % (%) 80.0 09/28 604 Gran # (K/mm3) 6.3 09/28 604 Lymphocytes % (%) 14.4 09/28 604 Monocytes % (%) 5.0 09/28 604 Eosinophils % (%) 0.3 09/28 604 Basophils % (%) 0.3 09/28 604 Lymphocytes # (K/mm3) 1.1 09/28 604 Monocytes # (K/mm3) 0.4 09/28 604 Eosinophils # (K/mm3) 0.0 09/28 604 Basophils # (K/MM3) 0.0 09/28 604 PUBS MCHC (g/dl) 31.0 09/28 604 Immunology Antibody Screen NEGATIVE 09/28 604 MCH (pg) 28.2 09/28 604 Miscellaneous Miscellaneous Test NEGATIVE 09/28 604 Urines Urine Color YELLOW 09/28 UNK Urine Appearance CLEAR 09/28 UNK Urine pH 5.5 09/28 UNK Ur Specific [place] 1.025 09/28 UNK Urine Protein (mg/dL) 1+ 09/28 UNK Urine Ketones (mg/dL) TRACE 09/28 UNK Urine Blood TRACE-LYSED 09/28 UNK Urine Nitrate NEGATIVE 09/28 UNK Urine Bilirubin NEGATIVE 09/28 UNK Urine Urobilinogen (E.U./dL) 0.2 09/28 UNK Ur Leukocyte Esterase NEGATIVE 09/28 UNK Urine WBC (wbc/hpf) OCC 09/28 UNK Ur Squamous Epith Cells (#/hpf) OCC 09/28 UNK Urine Bacteria TRACE 09/28 UNK Hyaline Casts (#/lpf) OCC 09/28 UNK Fine Granular Casts (#/lpf) 5-10 09/28 UNK Urine Mucus OCC 09/28 UNK Urine Glucose NEGATIVE 09/28 UNK Physical Exam VS/I&O Vital Signs Date Time Temp Pulse Resp B/P Pulse O2 O2 Flow FiO2 Ox Delivery Rate 09/30 0808 98.2 95 18 167/100 92 ROOM AIR 09/30 0619 2 09/30 0619 95 ROOM AIR 09/30 0600 86 22 175/103 97 ROOM AIR 09/30 0500 97.7 92 172/106 93 ROOM AIR 09/30 0400 90 172/106 94 ROOM AIR 09/30 0300 92 169/106 93 ROOM AIR 09/30 0200 99 24 175/105 94 ROOM AIR 09/30 0100 97.9 84 23 156/87 92 ROOM AIR 09/30 0000 84 146/87 94 ROOM AIR 09/29 2300 84 148/98 94 ROOM AIR 09/29 2200 98.7 91 172/100 94 ROOM AIR 09/29 2100 95 174/109 93 ROOM AIR 09/29 2000 98.6 101 21 170/107 93 ROOM AIR 09/29 1936 94 ROOM AIR 09/29 1900 98.5 99 18 183/109 94 ROOM AIR 09/29 1830 174/98 09/29 1800 98.2 98 20 177/106 93 ROOM AIR 09/29 1730 179/104 03 1700 98.0 90 18 176/98 95 ROOM AIR 09/29 1630 176/98 09/29 1600 98.1 88 16 176/99 95 ROOM AIR 09/29 1530 174/98 09/29 1507 17 03 1500 98.3 91 18 175/102 94 ROOM AIR 09/29 1400 98.2 89 18 196/105 94 ROOM AIR 09/29 1300 98.2 90 17 173/84 97 ROOM AIR 09/29 1200 98.3 81 22 187/94 94 ROOM AIR 09/29 1200 98.1 77 20 191/98 100 /10 1100 1 09/29 1100 98.1 77 20 191/98 100 OXYGEN 1 09/29 1006 2 09/29 1006 98.0 85 22 191/96 100 OXYGEN 2 I&O 09/30 0700 Intake Total 1379 Output Total 4780 Balance -3401 Intake, IV 1379 Intake, Oral 0 Output, Other 400 Output, Urine 4380 Patient 65.034 kg Weight Exam General appearance no acute distress Respiratory no distress Cardiovascular regular rate and rhythm Abdomen soft (incision c/d/i) Post op patient plan Diagnoses: post-op ileus Plan: Ambulate, dc heide, YANY labs, keep NG for now, PT consult This inpt stay is expected to cross 2 MNs from start of care Yes at 0961
[2016-09-30 10:55] LABS: HEMOGLOBIN 9.9 g/dL (12.2-16.2); LYMPH # 0.7 K/mm3 (0.7-4.5); LYMPH % 7.6 % (10-50.0)
[2016-09-30 14:28] LABS: NEUTROPHILS 84 % (42-76)
[2016-10-01] VITALS (15 sets, daily range): BP systolic 132–186; BP diastolic 85–99
--- NOTE | 2016-10-01 09:13 | POST-OP PROGRESS NOTE ---
Post Op Subjective Data Patient is post-op day 3 Subjective data: Feels "better this morning". Pain improved. No nausea. No flatus. Post op objective data Vitals,I&O,and Labs: Vital signs, intake and output,and available lab data for the last 24 hours is as noted below. Vital Signs Date Time Temp Pulse Resp B/P Pulse O2 O2 Flow FiO2 Ox Delivery Rate 10/01 0643 2 10/01 0643 94 2 10/01 0600 89 18 164/90 94 OXYGEN 2 10/01 0520 2 10/01 0500 86 20 132/88 93 OXYGEN 2 10/01 0457 97.5 81 18 148/89 94 2 10/01 0400 89 18 151/89 95 OXYGEN 2 10/01 0313 2 10/01 0311 81 18 148/89 94 OXYGEN 2 10/01 0100 87 18 146/91 93 OXYGEN 2 10/01 0058 2 10/01 0000 85 20 149/91 94 OXYGEN 2 09/30 2300 85 20 126/82 93 OXYGEN 2 09/30 2259 2 09/30 2200 91 18 166/102 92 OXYGEN 2 09/30 2131 2 09/30 2130 2 09/30 2100 93 18 164/105 96 OXYGEN 2 09/30 2016 97.4 94 18 159/104 92 2 09/30 2000 97.4 94 18 159/104 92 OXYGEN 2 09/30 1600 98.4 101 18 140/98 92 ROOM AIR 09/30 1400 98.4 94 18 175/114 92 ROOM AIR 09/30 1200 98.2 89 18 172/112 92 ROOM AIR 09/30 1000 98.2 89 18 169/106 92 ROOM AIR 09/30 1500 11 2300 10/01 0700 Intake Total 1850 Output Total 800 400 400 Balance -800 -400 1450 Intake, IV 1810 Intake, Tube 40 Irrigant Output, Other 400 400 Output, Urine 800 Patient 64.07 kg Weight Laboratory Tests Test Result Date Time Blood Gas ABG pH (MMOL/L) 7.38 09/29 712 ABG pCO2 (Temp Corrct (MMHG) 28.9 09/29 712 ABG pO2 (Temp Correct (MMHG) 88.7 09/29 712 ABG HCO3 (MMOL/L) 16.5 09/29 712 ABG Total CO2 (MMOL/L) 17.4 09/29 712 ABG O2 Sat (Calculated) (%) 96.4 09/29 712 ABG Base Excess (MMOL/L) -8.7 09/29 712 Nithin Test PATIENT UNABLE 09/29 712 Vent Rate 12 09/28 1529 Tidal Volume 443 09/29 712 POC PEEP 5 09/29 712 Pressure Support 10 09/29 712 Blood Gas Comments LEFT RADIAL 09/29 712 Chemistry Sodium (mmoL/L) 132 09/30 1025 Potassium (mmoL/L) 4.0 09/30 1025 Chloride (mmoL/L) 107 09/30 1025 Carbon Dioxide (mmoL/L) 24 09/30 1025 BUN (mg/dL) 31 09/30 1025 Creatinine (mg/dL) 1.3 09/30 1025 Estimated Creat Clear (ML/MIN) 35 09/30 1025 Estimated GFR (MDRD) (ML/MIN) 39 09/30 1025 Glucose (mg/dL) 191 09/30 1025 Calcium (mg/dL) 8.3 09/30 1025 Total Bilirubin (mg/dL) 0.3 09/25 1522 AST (U/L) 37 09/25 1522 ALT (U/L) 21 09/25 1522 Alkaline Phosphatase (U/L) 43 09/25 1522 Total Protein (gm/dL) 8.3 09/25 1522 Albumin (gm/dL) 2.9 09/25 1522 Globulin (gm/dL) 5.4 09/25 1522 Albumin/Globulin Ratio 0.5 09/25 1522 Amylase (U/L) 42 09/25 1522 Lipase (U/L) 194 09/25 1522 Carcinoembryonic Ag (ng/mL) 2.8 09/28 0605 Hematology WBC (K/MM3) 9.6 09/30 1025 RBC (M/mm3) 3.54 09/30 1025 Hgb (g/dL) 9.9 09/30 1025 Hct (%) 30.8 09/30 1025 MCV (fl) 87.1 09/30 1025 RDW (%) 15.7 09/30 1025 Plt Count (K/mm3) 449 09/30 1025 MPV (fl) 6.0 09/30 1025 Gran % (%) 86.8 09/30 1025 Gran # (K/mm3) 8.3 09/30 1025 Total Counted (#CELLS) 50 09/30 1025 Lymphocytes % (%) 7.6 09/30 1025 Monocytes % (%) 5.3 09/30 1025 Eosinophils % (%) 0.1 09/30 1025 Basophils % (%) 0.1 09/30 1025 Neutrophils (%) 84 09/30 1025 Lymphocytes (Manual) (%) 16 09/30 1025 Lymphocytes # (K/mm3) 0.7 09/30 1025 Monocytes # (K/mm3) 0.5 09/30 1025 Eosinophils # (K/mm3) 0.0 09/30 102 Basophils # (K/MM3) 0.0 09/30 1025 Platelet Estimate NORMAL 09/30 102 Anisocytosis 1+ 09/30 1025 PUBS MCHC (g/dl) 32.2 09/30 1025 Immunology Antibody Screen NEGATIVE 09/28 604 MCH (pg) 28.0 09/30 1025 Miscellaneous Miscellaneous Test NEGATIVE 09/28 604 Urines Urine Color YELLOW 09/28 UNK Urine Appearance CLEAR 09/28 UNK Urine pH 5.5 09/28 UNK Ur Specific [place] 1.025 09/28 UNK Urine Protein (mg/dL) 1+ 09/28 UNK Urine Ketones (mg/dL) TRACE 09/28 UNK Urine Blood TRACE-LYSED 09/28 UNK Urine Nitrate NEGATIVE 09/28 UNK Urine Bilirubin NEGATIVE 09/28 UNK Urine Urobilinogen (E.U./dL) 0.2 09/28 UNK Ur Leukocyte Esterase NEGATIVE 09/28 UNK Urine WBC (wbc/hpf) OCC 09/28 UNK Ur Squamous Epith Cells (#/hpf) OCC 09/28 UNK Urine Bacteria TRACE 09/28 UNK Hyaline Casts (#/lpf) OCC 09/28 UNK Fine Granular Casts (#/lpf) 5-10 09/28 UNK Urine Mucus OCC 09/28 UNK Urine Glucose NEGATIVE 09/28 UNK Physical Exam VS/I&O Vital Signs Date Time Temp Pulse Resp B/P Pulse O2 O2 Flow FiO2 Ox Delivery Rate 10/01 0643 2 10/01 0643 94 2 10/01 0600 89 18 164/90 94 OXYGEN 2 10/01 0520 2 10/01 0500 86 20 132/88 93 OXYGEN 2 10/01 0457 97.5 81 18 148/89 94 2 10/01 0400 89 18 151/89 95 OXYGEN 2 10/01 0313 2 10/01 0311 81 18 148/89 94 OXYGEN 2 10/01 0100 87 18 146/91 93 OXYGEN 2 10/01 0058 2 10/01 0000 85 20 149/91 94 OXYGEN 2 09/30 2300 85 20 126/82 93 OXYGEN 2 09/30 2259 2 09/30 2200 91 18 166/102 92 OXYGEN 2 09/30 2131 2 09/30 2130 2 09/30 2100 93 18 164/105 96 OXYGEN 2 09/30 2016 97.4 94 18 159/104 92 2 10/01 1999 97.4 94 18 159/104 92 OXYGEN 2 09/30 1600 98.4 101 18 140/98 92 ROOM AIR 09/30 1400 98.4 94 18 175/114 92 ROOM AIR 09/30 1200 98.2 89 18 172/112 92 ROOM AIR 09/30 1000 98.2 89 18 169/106 92 ROOM AIR I&O 10/01 0700 Intake Total 1850 Output Total 1600 Balance 250 Intake, IV 1810 Intake, Tube 40 Irrigant Output, Other 800 Output, Urine 800 Patient 64.07 kg Weight Exam General appearance no acute distress, alert, oriented Respiratory no distress, on oxygen Cardiovascular regular rate and rhythm Abdomen soft (incision C/D/I. No erythema.) Post op patient plan Diagnoses: Postoperative ileus - moderate, ongoing nasogastric tube output...no flatus... Plan: Ambulate, increase ambulation, place NG to drain bag This inpt stay is expected to cross 2 MNs from start of care Yes at 0912
--- NOTE | 2016-10-01 10:05 | ACUTE CARE PROGRESS NOTE (QUA) ---
Progress Notes Subjective Date 10/01/16 Time 1002 Note Patient with no new complaints today, feels a little better. Objective Findings Laboratory Tests 09/30/16 1025: Sodium 132 L, Potassium 4.0, Chloride 107, Carbon Dioxide 24, BUN 31 H, Creatinine 1.3 H, Estimated Creat Clear 35 L, Estimated GFR (MDRD) 39 L, Glucose 191 H, Calcium 8.3 L, WBC 9.6, RBC 3.54 L, Hgb 9.9 L, Hct 30.8 L, MCV 87.1, RDW 15.7, Plt Count 449 H, MPV 6.0 L, Gran % 86.8 H, Gran # 8.3 H, Total Counted 50, Lymphocytes % 7.6 L, Monocytes % 5.3, Eosinophils % 0.1, Basophils % 0.1, Neutrophils 84 H, Lymphocytes (Manual) 16, Lymphocytes # 0.7, Monocytes # 0.5, Eosinophils # 0.0, Basophils # 0.0, Platelet Estimate NORMAL, Anisocytosis 1+, PUBS MCHC 32.2, MCH 28.0 Vital Signs Date Time Temp Pulse Resp B/P Pulse O2 O2 Flow FiO2 Ox Delivery Rate 10/01 0643 2 10/01 0643 94 2 10/01 0600 89 18 164/90 94 OXYGEN 2 10/01 0520 2 10/01 0500 86 20 132/88 93 OXYGEN 2 10/01 0457 97.5 81 18 148/89 94 2 10/01 0400 89 18 151/89 95 OXYGEN 2 10/01 0313 2 10/01 0311 81 18 148/89 94 OXYGEN 2 10/01 0100 87 18 146/91 93 OXYGEN 2 10/01 0058 2 10/01 0000 85 20 149/91 94 OXYGEN 2 09/30 2300 85 20 126/82 93 OXYGEN 2 09/30 2259 2 09/30 2200 91 18 166/102 92 OXYGEN 2 09/30 2131 2 09/30 2130 2 09/30 2100 93 18 164/105 96 OXYGEN 2 09/30 2017 97.4 94 18 159/104 92 2 09/30 2000 97.4 94 18 159/104 92 OXYGEN 2 09/30 1600 98.4 101 18 140/98 92 ROOM AIR 09/30 1400 98.4 94 18 175/114 92 ROOM AIR 09/30 1200 98.2 89 18 172/112 92 ROOM AIR I&O Past 24 Hrs-ending at 0700 03/12 0700 Intake Total 1850 Output Total 1600 Balance 250 Last VS-Temp:97.5 B/P:164/90 Pulse:89 Resp:18 SaO2:94 OXYGEN Last weight lbs:141 oz:4 K.07 Method:Bed Scales Exam General appearance: alert, awake, no acute distress Cardiovascular: regular rate & rhythm Extremities: no peripheral edema Assessment/Plan Problem List 1. Colonic mass Status: Acute 2. Abdominal pain Status: Acute 3. JALYN (acute kidney injury) Status: Acute 4. HTN (hypertension) Status: Chronic 5. Hypothyroidism Status: Chronic 6. GERD (gastroesophageal reflux disease) Status: Chronic 7. Respiratory failure, acute Status: Resolved 8. Diarrhea Status: Resolved 9. Rales Status: Acute This inpt stay is expected to cross 2 MNs from start of care Yes Comments: Plan to continue current care. NG tube to stay in place today. Care discussed with Dr. Fish. at 1006
[2016-10-02] VITALS (13 sets, daily range): BP systolic 132–176; BP diastolic 72–99
--- NOTE | 2016-10-02 07:49 | SURGEON PROGRESS NOTE ---
Subjective data Subjective data: JAKE RAMAN is a 81 F .Patient denies complaint of nausea and vomitting.She reports her last pain level as 0 on a 0-10 pain scale. Only complaint is some soreness when coughing. No nausea. Assessment findings Assessment Exam General appearance: normal appearance, alert, active ABD: soft Patient plan Plan: CHELSIE ARRIOLA at 0769
--- NOTE | 2016-10-02 07:52 | ACUTE CARE PROGRESS NOTE (QUA) ---
Progress Notes Subjective Date 10/02/16 Time 0745 Note slept better; denies nausea; would like to have NGT out; remains NPO; no nausea or belching; no stool or flatus; using minimal pain med; has been OOB and has walked with walker and help. Denies CP and SOB and cough Objective Findings Vital Signs Date Time Temp Pulse Resp B/P Pulse O2 O2 Flow FiO2 Ox Delivery Rate 10/02 0554 99.2 77 18 167/88 99 OXYGEN 10/02 0530 2 10/02 0411 98.7 103 18 153/92 91 OXYGEN 10/02 0330 2 10/02 0231 98.9 90 18 144/84 90 OXYGEN 10/02 0140 2 10/02 0001 98.9 103 18 136/84 90 OXYGEN 10/01 2307 2 10/01 2202 99.1 96 18 143/85 90 OXYGEN 10/01 2100 2 10/01 2030 98.6 97 18 167/90 95 2 10/01 1942 98.6 97 18 167/90 95 OXYGEN 10/01 1809 97.8 96 18 186/91 91 OXYGEN 10/01 1700 2 10/01 1538 97.7 117 18 140/99 90 OXYGEN 10/01 1440 97.8 102 18 140/85 90 OXYGEN 10/01 1300 2 10/01 1202 97.7 88 186/87 93 OXYGEN 10/01 0900 2 10/01 0900 97.7 88 18 186/87 93 2 Current Medications Levothyroxine Sodium 0.075 MG DAILY PO Nitroglycerin 0.5 IN Q8 TP Pantoprazole Sodium 40 MG BID IV Gentamicin Sulfate 80 MG TIDRT IH Metoprolol Tartrate 0 .STK-MED ONE IV (DC) Potassium Chloride/Dextrose/Sod Cl 1,000 ML .[id number] IV Potassium Chloride/Dextrose/Sod Cl 1,000 ML .STK-MED ONE IV (DC) Lorazepam 1 MG Q4HP PRN IV Metoprolol Tartrate 5 MG Q6HP PRN IV Morphine Sulfate 2 MG Q2HP PRN IV Morphine Sulfate 1 MG [id number] PRN IV Ondansetron HCl 4 MG Q6HP PRN IV Sodium Chloride 2 ML PRN PRN IV Sodium Chloride 10 ML PRN PRN IV Sodium Chloride 10 ML PRN PRN IV Sodium Chloride 10 ML PRN PRN IV (DC) Pantoprazole Sodium 40 MG BID IV (DC) Metoprolol Tartrate 5 MG Q6HP PRN IV (DC) Levothyroxine Sodium 0.075 MG DAILY PO (DC) Potassium Chloride/Dextrose/Sod Cl 1,000 ML .[id number] IV (DC) Gentamicin Sulfate 80 MG TIDRT IH (DC) Nitroglycerin 0.5 IN Q8 TP (DC) Lorazepam 1 MG Q4HP PRN IV (DC) Morphine Sulfate 2 MG Q2HP PRN IV (DC) Morphine Sulfate 1 MG [id number] PRN IV (DC) Ondansetron HCl 4 MG Q6HP PRN IV (DC) Sodium Chloride 2 ML PRN PRN IV (DC) Sodium Chloride 10 ML PRN PRN IV (DC) 10/01 1500 10/01 2300 10/02 0700 Intake Total 30 927 Output Total 0 Balance 30 927 Intake, IV 867 Intake, Tube 30 60 Irrigant Output, Other 0 Last VS-Temp:99.2 B/P:167/88 Pulse:77 Resp:18 SaO2:99 OXYGEN Last weight lbs:141 oz:4 K.07 Method:Bed Scales Exam General appearance: alert, no acute distress Cardiovascular: regular rate & rhythm Respiratory: decreased BS in bilateral bases but CTAB A&P ABD: soft, incision with rebeca is C/D/I; NGT to straight drain with green drainage; audible BS Assessment/Plan Problem List 1. Colonic mass Status: Acute 2. Abdominal pain Status: Acute 3. JALYN (acute kidney injury) Status: Acute 4. HTN (hypertension) Status: Chronic 5. Hypothyroidism Status: Chronic 6. GERD (gastroesophageal reflux disease) Status: Chronic 7. Respiratory failure, acute Status: Resolved 8. Diarrhea Status: Resolved 9. Rales Status: Acute 10. Post-operative state Patient condition Improving Plan: as per surgeon; continue with increasing activity This inpt stay is expected to cross 2 MNs from start of care Yes (Gemma Lepe APRN) Assessment/Plan Problem List 1. Colonic mass Status: Acute 2. Abdominal pain Status: Acute 3. JALYN (acute kidney injury) Status: Acute 4. HTN (hypertension) Status: Chronic 5. Hypothyroidism Status: Chronic 6. GERD (gastroesophageal reflux disease) Status: Chronic 7. Respiratory failure, acute Status: Resolved 8. Diarrhea Status: Resolved 9. Rales Status: Acute 10. Post-operative state Comments: Patient seen and agree with above note. (Ben Huang MD) at 0752 at 0854
--- NOTE | 2016-10-02 07:52 | ACUTE CARE PROGRESS NOTE (QUA) ---
Progress Notes Subjective Date 10/02/16 Time 0745 Note slept better; denies nausea; would like to have NGT out; remains NPO; no nausea or belching; no stool or flatus; using minimal pain med; has been OOB and has walked with walker and help. Denies CP and SOB and cough Objective Findings Vital Signs Date Time Temp Pulse Resp B/P Pulse O2 O2 Flow FiO2 Ox Delivery Rate 10/02 0554 99.2 77 18 167/88 99 OXYGEN 10/02 0530 2 10/02 0411 98.7 103 18 153/92 91 OXYGEN 10/02 0330 2 10/02 0231 98.9 90 18 144/84 90 OXYGEN 10/02 0140 2 10/02 0001 98.9 103 18 136/84 90 OXYGEN 10/01 2307 2 10/01 2202 99.1 96 18 143/85 90 OXYGEN 10/01 2100 2 10/01 2030 98.6 97 18 167/90 95 2 10/01 1942 98.6 97 18 167/90 95 OXYGEN 10/01 1809 97.8 96 18 186/91 91 OXYGEN 10/01 1700 2 10/01 1538 97.7 117 18 140/99 90 OXYGEN 10/01 1440 97.8 102 18 140/85 90 OXYGEN 10/01 1300 2 10/01 1202 97.7 88 186/87 93 OXYGEN 10/01 0900 2 10/01 0900 97.7 88 18 186/87 93 2 Current Medications Levothyroxine Sodium 0.075 MG DAILY PO Nitroglycerin 0.5 IN Q8 TP Pantoprazole Sodium 40 MG BID IV Gentamicin Sulfate 80 MG TIDRT IH Metoprolol Tartrate 0 .STK-MED ONE IV (DC) Potassium Chloride/Dextrose/Sod Cl 1,000 ML .[id number] IV Potassium Chloride/Dextrose/Sod Cl 1,000 ML .STK-MED ONE IV (DC) Lorazepam 1 MG Q4HP PRN IV Metoprolol Tartrate 5 MG Q6HP PRN IV Morphine Sulfate 2 MG Q2HP PRN IV Morphine Sulfate 1 MG [id number] PRN IV Ondansetron HCl 4 MG Q6HP PRN IV Sodium Chloride 2 ML PRN PRN IV Sodium Chloride 10 ML PRN PRN IV Sodium Chloride 10 ML PRN PRN IV Sodium Chloride 10 ML PRN PRN IV (DC) Pantoprazole Sodium 40 MG BID IV (DC) Metoprolol Tartrate 5 MG Q6HP PRN IV (DC) Levothyroxine Sodium 0.075 MG DAILY PO (DC) Potassium Chloride/Dextrose/Sod Cl 1,000 ML .[id number] IV (DC) Gentamicin Sulfate 80 MG TIDRT IH (DC) Nitroglycerin 0.5 IN Q8 TP (DC) Lorazepam 1 MG Q4HP PRN IV (DC) Morphine Sulfate 2 MG Q2HP PRN IV (DC) Morphine Sulfate 1 MG [id number] PRN IV (DC) Ondansetron HCl 4 MG Q6HP PRN IV (DC) Sodium Chloride 2 ML PRN PRN IV (DC) Sodium Chloride 10 ML PRN PRN IV (DC) 10/01 1500 10/01 2300 10/02 0700 Intake Total 30 927 Output Total 0 Balance 30 927 Intake, IV 867 Intake, Tube 30 60 Irrigant Output, Other 0 Last VS-Temp:99.2 B/P:167/88 Pulse:77 Resp:18 SaO2:99 OXYGEN Last weight lbs:141 oz:4 K.07 Method:Bed Scales Exam General appearance: alert, no acute distress Cardiovascular: regular rate & rhythm Respiratory: decreased BS in bilateral bases but CTAB A&P ABD: soft, incision with rebeca is C/D/I; NGT to straight drain with green drainage; audible BS Assessment/Plan Problem List 1. Colonic mass Status: Acute 2. Abdominal pain Status: Acute 3. JALYN (acute kidney injury) Status: Acute 4. HTN (hypertension) Status: Chronic 5. Hypothyroidism Status: Chronic 6. GERD (gastroesophageal reflux disease) Status: Chronic 7. Respiratory failure, acute Status: Resolved 8. Diarrhea Status: Resolved 9. Rales Status: Acute 10. Post-operative state Patient condition Improving Plan: as per surgeon; continue with increasing activity This inpt stay is expected to cross 2 MNs from start of care Yes (Gemma Lepe APRN) Assessment/Plan Problem List 1. Colonic mass Status: Acute 2. Abdominal pain Status: Acute 3. JALYN (acute kidney injury) Status: Acute 4. HTN (hypertension) Status: Chronic 5. Hypothyroidism Status: Chronic 6. GERD (gastroesophageal reflux disease) Status: Chronic 7. Respiratory failure, acute Status: Resolved 8. Diarrhea Status: Resolved 9. Rales Status: Acute 10. Post-operative state Comments: Patient seen and agree with above note. (Ben Huang MD) at [id number] at [id number]
[2016-10-03] VITALS (14 sets, daily range): BP systolic 114–159; BP diastolic 68–95
[2016-10-03 06:45] LABS: LYMPH # 1.1 K/mm3 (0.7-4.5); LYMPH % 12.2 % (10-50.0)
--- NOTE | 2016-10-03 07:05 | SURGEON PROGRESS NOTE ---
Subjective data Subjective data: JAKE RAMAN is a 81 F .Patient denies complaint of nausea and vomitting.She reports her last pain level as 0 on a 0-10 pain scale. Feels well. Much better with NG out. No nausea. Still no flatus. Assessment findings Assessment Exam General appearance: normal appearance, alert ABD: non-distended, soft, no tenderness Patient plan Plan: Advance diet Additional data: Clear liquids. at 0705
--- NOTE | 2016-10-03 08:31 | ACUTE CARE PROGRESS NOTE (QUA) ---
Progress Notes Subjective Date 10/03/16 Time 0745 Note + cough which makes abdomen hurt; using KNUCKLE STRAP SEWER pump; Denies CP and SOB; no nausea; no flatus or stools; taking clear liquids this AM; was OOB yesterday Objective Findings Laboratory Tests 10/03/16 0626: Sodium 136, Potassium 4.3, Chloride 104, Carbon Dioxide 23, BUN 15, Creatinine 1.3 H, Estimated Creat Clear 34 L, Estimated GFR (MDRD) 39 L, Glucose 156 H, Calcium 7.6 L, WBC 9.3, RBC 3.18 L, Hgb 9.0 L, Hct 28.3 L, MCV 89.1, RDW 15.6, Plt Count 389, MPV 6.1 L, Gran % 83.4 H, Gran # 7.8, Lymphocytes % 12.2, Monocytes % 3.7, Eosinophils % 0.5, Basophils % 0.1, Lymphocytes # 1.1, Monocytes # 0.3, Eosinophils # 0.1, Basophils # 0.0, PUBS MCHC 31.6 L, MCH 28.2 Vital Signs Date Time Temp Pulse Resp B/P Pulse O2 O2 Flow FiO2 Ox Delivery Rate 10/03 0750 98.2 96 20 157/95 91 ROOM AIR 10/03 0642 2 10/03 0641 98.7 88 20 149/86 95 2 10/03 0555 2 10/03 0555 98.7 88 20 149/86 95 OXYGEN 2 10/03 0509 2 10/03 0358 2 10/03 0358 98.7 91 16 159/93 97 OXYGEN 2 10/03 0302 2 10/03 0159 2 10/03 0159 98.6 93 20 138/79 96 OXYGEN 2 10/02 2357 2 10/02 2357 98.4 99 20 156/88 94 OXYGEN 2 10/02 2144 2 10/02 214 98.9 95 22 132/83 95 OXYGEN 2 10/026 2 10/02 2048 98.7 99 20 136/81 93 2 10/02 1950 2 10/02 1950 98.7 99 20 136/81 93 OXYGEN 2 10/02 1925 2 10/02 192 2 10/02 192 87 ROOM AIR 2 10/02 192 87 ROOM AIR 10/02 1859 2 10/02 1832 95 10/02 1831 98.7 102 20 167/99 95 OXYGEN 2 10/02 1700 2 10/02 1615 98.0 96 18 176/72 94 OXYGEN 10/02 1605 2 10/02 1420 98.2 98 18 148/86 91 OXYGEN 10/02 1158 2 10/02 1158 98.3 85 18 152/85 95 OXYGEN 10/02 1113 2 10/02 1053 98.2 89 18 154/83 95 OXYGEN 10/02 0850 2 10/02 0850 98.3 8.9 18 155/95 95 2 Current Medications Metoprolol Tartrate 0 .STK-MED ONE IV (DC) Levothyroxine Sodium 0.075 MG DAILY PO Nitroglycerin 0.5 IN Q8 TP Pantoprazole Sodium 40 MG BID IV Gentamicin Sulfate 80 MG TIDRT IH Potassium Chloride/Dextrose/Sod Cl 1,000 ML .[id number] IV Lorazepam 1 MG Q4HP PRN IV Metoprolol Tartrate 5 MG Q6HP PRN IV Morphine Sulfate 2 MG Q2HP PRN IV Morphine Sulfate 1 MG [id number] PRN IV Ondansetron HCl 4 MG Q6HP PRN IV Sodium Chloride 2 ML PRN PRN IV Sodium Chloride 10 ML PRN PRN IV Sodium Chloride 10 ML PRN PRN IV 10/02 1500 10/02 2300 10/03 0700 Intake Total 0 1752 810.75 Output Total 200 200 Balance -200 1552 810.75 Intake, IV 1752 810.75 Intake, Tube 0 Irrigant Output, Other 200 Output, Urine 200 Last VS-Temp:98.2 B/P:157/95 Pulse:96 Resp:20 SaO2:91 ROOM AIR Last weight lbs:141 oz:4 K.07 Method:Bed Scales Exam General appearance: alert, active, no acute distress, initially was sitting on the bedside Cardiovascular: regular rate & rhythm Respiratory: diminished BS posteriorly ABD: soft, surgical wound is C/D/H with rebeca in place; good BS Extremities: no peripheral edema, no calf tenderness Neuro: alert, oriented, speech clear Assessment/Plan Problem List 1. Colonic mass Status: Acute 2. Abdominal pain Status: Acute 3. JALYN (acute kidney injury) Status: Acute 4. HTN (hypertension) Status: Chronic 5. Hypothyroidism Status: Chronic 6. GERD (gastroesophageal reflux disease) Status: Chronic 7. Respiratory failure, acute Status: Resolved 8. Diarrhea Status: Resolved 9. Rales Status: Acute 10. Post-operative state Patient condition Improving Plan: continue current care This inpt stay is expected to cross 2 MNs from start of care Yes (Gemma Lepe APRN) Assessment/Plan Problem List 1. Colonic mass Status: Acute 2. Abdominal pain Status: Acute 3. JALYN (acute kidney injury) Status: Acute 4. HTN (hypertension) Status: Chronic 5. Hypothyroidism Status: Chronic 6. GERD (gastroesophageal reflux disease) Status: Chronic 7. Respiratory failure, acute Status: Resolved 8. Diarrhea Status: Resolved 9. Rales Status: Acute 10. Post-operative state Comments: Patient seen and agree with above note. (Ben Huang MD) at 0830 at 0919
[2016-10-04] VITALS (10 sets, daily range): BP systolic 116–188; BP diastolic 70–92
--- NOTE | 2016-10-04 08:15 | SURGEON PROGRESS NOTE ---
Subjective data Subjective data: JAKE RAMAN is a 81 F .Patient denies complaint of nausea and vomitting.She reports her last pain level as 0 on a 0-10 pain scale. Patient taking some clears without nausea. States it doesn't taste too well. Not passing flatus. Assessment findings Assessment Exam General appearance: normal appearance, alert ABD: normal bowel sounds, soft Patient plan Plan: Ambulate, IV fluids at 0814
--- NOTE | 2016-10-04 08:16 | ACUTE CARE PROGRESS NOTE (QUA) ---
Progress Notes Subjective Date 10/04/16 Time 0812 Note Pt looks and feels better today. She has pain with moving. She has not passed any gas or had a BM. She rested well and is tolerating her diet. Objective Findings Last VS-Temp:98.4 B/P:175/92 Pulse:94 Resp:18 SaO2:95 ROOM AIR Last weight lbs:141 oz:4 K.07 Method:Bed Scales Exam General appearance: alert, awake, no acute distress Cardiovascular: regular rate & rhythm Respiratory: clear to auscultation ABD: non-distended, normal bowel sounds, no rebound, soft, no guarding, ttp around the incision site, rebeca look good Extremities: no peripheral edema Assessment/Plan Problem List 1. Colonic mass Status: Acute 2. Abdominal pain Status: Acute 3. JALYN (acute kidney injury) Status: Acute 4. HTN (hypertension) Status: Chronic 5. Hypothyroidism Status: Chronic 6. GERD (gastroesophageal reflux disease) Status: Chronic 7. Respiratory failure, acute Status: Resolved 8. Diarrhea Status: Resolved 9. Rales Status: Acute 10. Post-operative state Plan: Surgery to follow. Encouraged her to get up and OOB with help. This inpt stay is expected to cross 2 MNs from start of care Yes (Denisse Erickson) Assessment/Plan Problem List 1. Colonic mass Status: Acute 2. Abdominal pain Status: Acute 3. JALYN (acute kidney injury) Status: Acute 4. HTN (hypertension) Status: Chronic 5. Hypothyroidism Status: Chronic 6. GERD (gastroesophageal reflux disease) Status: Chronic 7. Respiratory failure, acute Status: Resolved 8. Diarrhea Status: Resolved 9. Rales Status: Acute 10. Post-operative state Comments: Patient seen and agree with above note. (Ben Huang MD) at 0815 at 0830
[2016-10-05 04:03] VITALS: BP 151/92
[2016-10-05 07:50] VITALS: BP 154/66
--- NOTE | 2016-10-05 08:28 | ACUTE CARE PROGRESS NOTE (QUA) ---
Progress Notes Subjective Date 10/05/16 Time 0826 Note Patient states she is feeling well today. She has only needed one pain pill. She has been up and walking the halls and she sat up for approximately 4 hours yesterday. She still has not had a bowel movement or passed any gas. She would like to have something to eat other than clear liquids. Objective Findings Last VS-Temp:99.0 B/P:154/66 Pulse:92 Resp:18 SaO2:96 ROOM AIR Last weight lbs:141 oz:4 K.07 Method:Bed Scales Exam General appearance: alert, awake, no acute distress Cardiovascular: regular rate & rhythm Respiratory: clear to auscultation ABD: non-distended, normal bowel sounds, no rebound, soft, no guarding, rebeca look good, minimal bruising, slightly ttp around incision site Extremities: no peripheral edema Assessment/Plan Problem List 1. Colonic mass Status: Acute 2. Abdominal pain Status: Acute 3. JALYN (acute kidney injury) Status: Acute 4. HTN (hypertension) Status: Chronic 5. Hypothyroidism Status: Chronic 6. GERD (gastroesophageal reflux disease) Status: Chronic 7. Respiratory failure, acute Status: Resolved 8. Diarrhea Status: Resolved 9. Rales Status: Acute 10. Post-operative state Plan: Surgery to continue to follow. Will discuss with him about advancing her diet. Continue to get up and out of bed. This inpt stay is expected to cross 2 MNs from start of care Yes (Denisse Erickson) Assessment/Plan Problem List 1. Colonic mass Status: Acute 2. Abdominal pain Status: Acute 3. JALYN (acute kidney injury) Status: Acute 4. HTN (hypertension) Status: Chronic 5. Hypothyroidism Status: Chronic 6. GERD (gastroesophageal reflux disease) Status: Chronic 7. Respiratory failure, acute Status: Resolved 8. Diarrhea Status: Resolved 9. Rales Status: Acute 10. Post-operative state Comments: Patient seen and agree with above note. (Ben Huang MD) at 0828 at 0901
[2016-10-05 08:29] VITALS: BP 154/66
--- NOTE | 2016-10-05 08:47 | SURGEON PROGRESS NOTE ---
Subjective data Subjective data: JAKE RAMAN is a 81 F .Patient denies complaint of nausea and vomitting.She reports her last pain level as 0 on a 0-10 pain scale. Patient without complaints. Doesn't find the clear liquids very palatable. No nausea. But still no passage of flatus. Assessment findings Assessment Exam General appearance: normal appearance, alert ABD: normal bowel sounds, soft, no tenderness Patient plan Plan: Advance diet Additional data: Full liquids. at 0846
[2016-10-05 16:13] VITALS: BP 123/62
[2016-10-05 19:38] VITALS: BP 160/76
[2016-10-05 21:00] VITALS: BP 160/76
[2016-10-06 04:06] VITALS: BP 152/80
[2016-10-06 06:40] LABS: HEMOGLOBIN 8.1 g/dL (12.2-16.2); LYMPH # 1.1 K/mm3 (0.7-4.5); LYMPH % 16.5 % (10-50.0)
[2016-10-06 07:39] VITALS: BP 134/81
[2016-10-06 07:44] VITALS: BP 134/81
--- NOTE | 2016-10-06 08:01 | SURGEON PROGRESS NOTE ---
Subjective data Subjective data: JAKE RAMAN is a 81 F .Patient denies complaint of nausea and vomitting.She reports her last pain level as 0 on a 0-10 pain scale. Doing well. Passing gas and tolerating full liquid. No nausea. Diminished HH. Assessment findings Assessment Exam General appearance: normal appearance, alert, active ABD: soft, no tenderness Patient plan Plan: Up in chair, Monitor HH at 0800
--- NOTE | 2016-10-06 08:21 | ACUTE CARE PROGRESS NOTE (QUA) ---
Progress Notes Subjective Date 10/06/16 Time 0819 Note Pt is feeling much better today. She tolerated her diet and actually passed some gas. She has been up and walking. Her pain is controlled. Objective Findings Last VS-Temp:98.5 B/P:134/81 Pulse:90 Resp:18 SaO2:94 ROOM AIR Last weight lbs:141 oz:4 K.07 Method:Bed Scales Laboratory Tests 10/06/16 0620: Sodium 135 L, Potassium 4.8, Chloride 105, Carbon Dioxide 20 L, BUN 9, Creatinine 1.6 H, Estimated Creat Clear 28 L, Estimated GFR (MDRD) 31 L, Glucose 141 H, Calcium 7.7 L, WBC 6.6, RBC 2.79 L, Hgb 8.1 L, Hct 25.0 L, MCV 89.5, RDW 15.5, Plt Count 400, MPV 5.9 L, Gran % 76.7, Gran # 5.1, Lymphocytes % 16.5, Monocytes % 4.4, Eosinophils % 2.4, Basophils % 0.1, Lymphocytes # 1.1, Monocytes # 0.3, Eosinophils # 0.2, Basophils # 0.0, PUBS MCHC 32.5, MCH 29.1 Exam General appearance: alert, awake, no acute distress Cardiovascular: regular rate & rhythm Respiratory: clear to auscultation ABD: non-distended, normal bowel sounds, no rebound, soft, no guarding, ttp only around incision sites Extremities: no peripheral edema Assessment/Plan Problem List 1. Colonic mass Status: Acute 2. Abdominal pain Status: Acute 3. JALYN (acute kidney injury) Status: Acute 4. HTN (hypertension) Status: Chronic 5. Hypothyroidism Status: Chronic 6. GERD (gastroesophageal reflux disease) Status: Chronic 7. Respiratory failure, acute Status: Resolved 8. Diarrhea Status: Resolved 9. Rales Status: Acute 10. Post-operative state 11. Anemia Status: Acute Plan: H&H has dropped. Surgery is considering a blood transfusion today. She may be able to be discharged home tomorrow. This inpt stay is expected to cross 2 MNs from start of care Yes (Denisse Erickson) Assessment/Plan Problem List 1. Colonic mass Status: Acute 2. Abdominal pain Status: Acute 3. JALYN (acute kidney injury) Status: Acute 4. HTN (hypertension) Status: Chronic 5. Hypothyroidism Status: Chronic 6. GERD (gastroesophageal reflux disease) Status: Chronic 7. Respiratory failure, acute Status: Resolved 8. Diarrhea Status: Resolved 9. Rales Status: Acute 10. Post-operative state 11. Anemia Status: Acute Comments: Patient seen and agree with above note. Discussed case with Dr. Danielle, he would rather not transfuse today. Plan to recheck H/H tomorrow. (Ben Huang MD) at 0821 at 0904
[2016-10-06 16:11] VITALS: BP 146/92
[2016-10-07 03:46] VITALS: BP 136/72
[2016-10-07 06:20] LABS: HEMOGLOBIN 8.2 g/dL (12.2-16.2); LYMPH # 1.2 K/mm3 (0.7-4.5); LYMPH % 19.8 % (10-50.0)
--- NOTE | 2016-10-07 08:25 | SURGEON PROGRESS NOTE ---
Subjective data Subjective data: JAKE RAMAN is a 81 F .Patient denies complaint of nausea and vomitting.She reports her last pain level as 0 on a 0-10 pain scale. Patient without complaints other than wanting regular food. No nausea. Passing gas. Assessment findings Assessment Exam General appearance: normal appearance, alert, active ABD: soft, no tenderness Patient plan Plan: DC Home Additional data: Removed more rebeca and applied steri-strips. Okay with DC home. Recommend bland diet for a few days. Surgery follow-up next Sunday. at 0824
[2016-10-07 08:30] VITALS: BP 136/86
--- NOTE | 2016-10-07 08:33 | ACUTE CARE PROGRESS NOTE (QUA) ---
See Addendum Progress Notes Subjective Date 10/07/16 Time 0829 Note Patient feels well, wants to go home. Tolerating soft food. Objective Findings Laboratory Tests 10/07/16 0540: Sodium 139, Potassium 4.9, Chloride 107, Carbon Dioxide 23, BUN 10, Creatinine 1.7 H, Estimated Creat Clear 26 L, Estimated GFR (MDRD) 29 L, Glucose 137 H, Calcium 7.8 L, WBC 6.3, RBC 2.75 L, Hgb 8.2 L, Hct 24.7 L, MCV 89.7, RDW 15.8, Plt Count 403, MPV 6.0 L, Gran % 71.2, Gran # 4.5, Lymphocytes % 19.8, Monocytes % 6.6, Eosinophils % 2.3, Basophils % 0.1, Lymphocytes # 1.2, Monocytes # 0.4, Eosinophils # 0.2, Basophils # 0.0, PUBS MCHC 33.3, MCH 29.9 Vital Signs Date Time Temp Pulse Resp B/P Pulse O2 O2 Flow FiO2 Ox Delivery Rate 10/07 0822 2 10/07 0346 98.5 95 18 136/72 93 ROOM AIR 10/06 2205 98.6 102 18 146/92 92 10/07 2011 2 10/07 2011 92 ROOM AIR 10/06 1611 98.6 102 18 146/92 92 ROOM AIR I&O Past 24 Hrs-ending at 0700 10/07 0700 Intake Total 2221 Output Total Balance 2221 Last VS-Temp:98.5 B/P:136/72 Pulse:95 Resp:18 SaO2:93 ROOM AIR Last weight lbs:141 oz:4 K.07 Method:Bed Scales Exam General appearance: alert, awake, no acute distress Cardiovascular: regular rate & rhythm ABD: normal bowel sounds, soft, no tenderness Extremities: no peripheral edema Assessment/Plan Problem List 1. Adenocarcinoma, colon Status: Acute 2. Colonic mass Status: Acute 3. Abdominal pain Status: Acute 4. JALYN (acute kidney injury) Status: Acute 5. HTN (hypertension) Status: Chronic 6. Hypothyroidism Status: Chronic 7. GERD (gastroesophageal reflux disease) Status: Chronic 8. Respiratory failure, acute Status: Resolved 9. Diarrhea Status: Resolved 10. Rales Status: Acute 11. Post-operative state 12. Anemia Status: Acute This inpt stay is expected to cross 2 MNs from start of care Yes Comments: OK for discharge today. Discussed colon cancer diagnosis with Dr. Danielle. Patient should not need further treatment at this time. at 0832
[2016-10-07] MEDS ORDERED: FERROUS SULFAT325 M1 PO (08:36)
[2016-10-07 09:17] VITALS: BP 136/86
[2016-10-07 11:55] VITALS: BP 136/86
--- NOTE | 2016-10-12 13:28 | DISCHARGE SUMMARY STANDARD ---
Discharge Summary ([facility]2) Date of admission: 09/25/16 Date of discharge: 10/07/16 Problem List: 1. Adenocarcinoma, colon 2. Colonic mass 3. Abdominal pain 4. JALYN (acute kidney injury) 5. HTN (hypertension) 6. Hypothyroidism 7. GERD (gastroesophageal reflux disease) 8. Respiratory failure, acute 9. Diarrhea 10. Rales 11. Post-operative state 12. Anemia 13. MRSA infection History of present illness: Ms. Lomas is an 81-year-old white female. 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 She had been hospitalized in late July with a change in bowel habits. At that time she had undergone a noncontrast CT scan which revealed findings suggestive of ileocolic intussusception. Her symptoms actually completely resolved during that hospitalization and she underwent a follow-up CT scan with oral contrast later during that admission which revealed findings more suggestive of right-sided colitis. She stated she had been doing well at home as an outpatient without any such symptoms until last Sunday. She states that she had eaten some spicy food and then developed significant diarrhea with watery stools for several days. She saw Dr. Huang and was started on metronidazole on 09/22/16. She had ongoing symptoms of LEFT lower quadrant pain as well as ongoing diarrhea. She presented to the emergency department for evaluation. A CT scan was performed without contrast which was read as ileocolic intussusception. She was admitted and Dr. Danielle was consulted. She denied any nausea or vomiting. Exam on admission: General appearance: alert, awake, no acute distress Eyes: EOM's w/normal ROM, PERRLA ENT: nose normal, pharynx normal, tympanic membranes normal, dry mucous membranes Neck: non-tender, full range of motion, supple Cardiovascular: regular rate & rhythm Respiratory: clear to auscultation ABD: non-distended, normal bowel sounds, no rebound, soft, no guarding, ttp in the RMQ and RLQ Extremities: no peripheral edema Musculoskeletal: equal muscle strength, motor intact, sensation intact Skin: normal color Neuro: normal mood/affect, oriented, speech clear Hospital Course: Dr. Danielle saw the patient in consultation and reviewed her CT scan with radiology. He felt that she would need a colonoscopy to differentiate between inflammatory bowel disease, versus a neoplasm, versus inflammation. Dr. Danielle performed a colonoscopy and found a mass in the colon that he felt would require colon resection. She had a RIGHT hemicolectomy with ileocolic anastomosis on recent 09/28/16. She was unable to be extubated after surgery due to poor respiratory effort and sedation, therefore she was reintubated in the PACU. She was able to be extubated on 09/29/16. She did well after she was extubated and moved to the floor. Her sputum was positive for MRSA and she was started on nebulized gentamicin. Her blood pressure was elevated, therefore she was started on nitroglycerin paste. This was changed to IV metoprolol for better blood pressure control. She took very little pain medication. She had an NG tube which was removed on 10/02/16. She was encouraged to get up and ambulate. She was started on clear liquids and tolerated these well. She was able to get up and out of bed. Her diet was advanced to full liquids and she tolerated these well. She finally began passing some gas. Her hemoglobin did decrease to 8.[address] Danielle wanted to refrain from transfusion. Her H&H remained about the same and she was stable to be discharged home on 10/07/16. She will follow-up with both Dr. Huang and Dr. Danielle. Discharge medications: Stop taking the following medications: Metronidazole (Flagyl) 500 MG TABLET ORAL EVERY 8 HOURS (12/02/20) Qty = 20 Continue taking these medications: Lisinopril (Lisinopril) 20 MG TABLET 20 MILLIGRAM ORAL DAILY Aspirin (Aspirin) 81 MG TAB.CHEW 81 MILLIGRAM ORAL AT BEDTIME NIGHTLY PRAVASTATIN SODIUM (Pravastatin Sodium) 40 MG TABLET 40 MILLIGRAM ORAL AT BEDTIME NIGHTLY METOPROLOL SUCCINATE XL (Metoprolol Succinate) 100 MG TAB.ER.24H 100 MILLIGRAM ORAL DAILY Levothyroxine Sodium (Levothyroxine 0.075MG) 75 MCG TABLET 0.075 MILLIGRAM ORAL DAILY Pantoprazole Sodium (Protonix 40MG TAB) 40 MG TABLET.DR 40 MILLIGRAM ORAL AT BEDTIME NIGHTLY FEXOFENADINE HCL (Yolanda Allergy) 180 MG TABLET 180 MILLIGRAM ORAL DAILY Bacillus Coagulans/Inulin (Probiotic Formula Capsule) 1 BILLION CELL-250 MG CAPSULE 1 EACH ORAL DAILY Calcium Crb&Cit/D3/Min34/Pauline (Citracal + Bone Density Tablet) 1 EACH TABLET 1 EACH ORAL DAILY Multivit-Min/FA/Lycopene/Lut (Centrum Silver Tablet) 1 EACH TABLET 1 EACH ORAL DAILY Start taking the following new medications: Ferrous Sulfate (Ferrous Sulfate 325MG) 325 MG TABLET 325 MILLIGRAM ORAL TWICE A DAY Days = 90 No Refills Comments: OTC Disposition: F/U with: Devon Danielle MD Follow up: 6 DAYS Activity: Cont Current activity Diet: [place] Discharge to: HOME Agency needed? N at 2746
== END 2016-10-07 11:51 | disposition home or self-care (01) | DRG 329 ==
LOC: ER 14:46 → 2ND 18:08 → ER 18:08 → 2ND 18:40 → ICU 18:40 → 2ND 09-29 14:59
PROVIDERS: Emergency Medicine; Family Medicine; Surgery
PROC: 5A1935Z Respiratory Ventilation, Less than 24 Consecutive Hours (ICD-10-PCS; 2016-09-28)
PROC: 0BH17EZ Insertion of Endotracheal Airway into Trachea, Via Natural or Artificial Opening (ICD-10-PCS; 2016-09-28)
PROC: 0DTF0ZZ Resection of Right Large Intestine, Open Approach (ICD-10-PCS; principal; 2016-09-28 11:15)
DX: C18.2 Malignant neoplasm of ascending colon (principal); J95.821 Acute postprocedural respiratory failure; K56.1 Intussusception; K56.0 Paralytic ileus; K91.89 Other postprocedural complications and disorders of digestive system; I10 Essential (primary) hypertension; A49.02 Methicillin resistant Staphylococcus aureus infection, unspecified site; Z85.3 Personal history of malignant neoplasm of breast; D64.9 Anemia, unspecified
CPT/HCPCS: J1335; J2405; J2710

== ENCOUNTER → 2016-11-07 | Outpatient (CLI) | payer MEDICARE ==
[~2016-11-07] MED LIST changes: +ALLEGRA ALLERG180 MG PO; +CENTRUM SILVER1 EACH PO; +CITRACAL + BON1 EACH PO; +FERROUS SULFAT325 M1 PO; +PROBIOTIC FORM1 EACH PO
--- NOTE | 2016-11-08 09:49 | RADIOLOGY REPORT PS360 ---
CT ABD PELVIS W/O CONTRAST CLINICAL INDICATION: SP COLON RESECTION, ABDOMEN PAIN ORDERING PHYSICIAN: Devon Danielle MD PATIENT AGE: 81 years COMPARISON: 09/25/2016 TECHNIQUE: Axial images obtained with sagittal and coronal reformats. PROCEDURE: Oral Contrast: Redicat IV Contrast: None . FINDINGS: Chronic changes are present in the lung bases with mild bronchiectasis, bronchial thickening, and pulmonary fibrotic change. Prior cholecystectomy. The liver,adrenal glands, and pancreas have an unremarkable unenhanced appearance. There is a 15 mm isodense lesion of the spleen as previously described unchanged. Unremarkable kidneys. There has been interval surgery of the cecum with an ileocolic anastomosis in the ascending colon region. Previously noted intussusception is no longer apparent. There is some minimal stranding of the fat in the right lower quadrant which is likely related to postsurgical changes. There is minimal thickening of the colon in the right lower quadrant but could be related to nondistention. No abscess or intestinal obstruction evident. Postsurgical changes are present involving the anterior abdominal wall. No free air. There is a 2.6 cm area of gas to the right of the rectum and may all be related to unopacified tortuous bowel. There is no stranding of the fat around this region. Contrast has not yet made to this area. An abscess is felt to be less likely. IMPRESSION: 1. Status post resection of the cecum with ileocolic anastomosis which is patent. There are some mild postsurgical changes at the right lower quadrant with some minimal thickening of the bowel at this region which may be due to nondistention. 2. No change splenic lesion. 3. Postsurgical changes as described above
== END ==
LOC: RAD 09:32
DX: R10.31 Right lower quadrant pain (principal); Z90.49 Acquired absence of other specified parts of digestive tract

== ENCOUNTER → 2017-05-07 | Outpatient (CLI) | payer MEDICARE ==
--- NOTE | 2017-05-07 13:45 | RADIOLOGY REPORT PS360 ---
CHEST(2 VIEWS-NOT PORTABLE) HISTORY: COUGH ORDERING PHYSICIAN: Ben Huang MD PATIENT AGE: 82 years COMPARISON: 03/29/2017 FINDINGS: Unremarkable heart size.. Diffuse chronic changes with chronic coarsening of the bronchovascular markings and interstitium. Superimposed increased density is present in the left lower lobe consistent with pneumonia.. Thoracic scoliosis convex right.. IMPRESSION: Chronic interstitial changes with superimposed left lower lobe pneumonia
[2017-05-07 14:53] LABS: BUN 43 mg/dL (7-18)
[2017-05-07 14:56] LABS: GFR (ESTIMATED) 20 ML/MIN (59-)
[2017-05-08 09:38] LABS: Vitamin D, 25-Hydroxy 38.6 ng/mL (30.0-100.0)
== END ==
LOC: LAB 13:02
PROVIDERS: Family Medicine
DX: N18.3 Chronic kidney disease, stage 3 (moderate) (principal); R53.83 Other fatigue; D50.9 Iron deficiency anemia, unspecified; R05 Cough

== ENCOUNTER → 2017-05-11 | Outpatient (CLI) | payer MEDICARE ==
[2017-05-11 12:52] LABS: BUN 43 mg/dL (7-18)
[2017-05-11 12:54] LABS: GFR (ESTIMATED) 20 ML/MIN (59-)
== END ==
LOC: LAB 11:31
PROVIDERS: Family Medicine
DX: N18.9 Chronic kidney disease, unspecified (principal)

== ENCOUNTER → 2017-07-02 | Outpatient (CLI) | payer MEDICARE ==
[2017-07-02 14:24] LABS: LYMPH # 2.1 K/mm3 (0.7-4.5); LYMPH % 22.2 % (10-50.0)
[2017-07-02 14:41] LABS: HEMOGLOBIN 10.5 g/dL (12.2-16.2)
[2017-07-02 14:47] LABS: BUN 34 mg/dL (7-18)
[2017-07-02 14:55] LABS: GFR (ESTIMATED) 23 ML/MIN (59-)
== END ==
LOC: LAB 13:38
PROVIDERS: Otolaryngology
DX: D37.01 Neoplasm of uncertain behavior of lip (principal); Z01.818 Encounter for other preprocedural examination